=== PATIENT | female | born 1970 | race Caucasian/White ===

== ENCOUNTER → 2022-01-24 10:45 | Outpatient (CLI) | payer MEDICAID, SELFPAY ==
[2022-01-24 13:55] LABS: Amphetamine/Metha Screen,Urine Negative ng/ml (<1000); Barbiturates Screen,Urine Negative ng/ml (<200)
[2022-01-24 13:56] LABS: Benzodiazepines Screen,Urine Negative ng/ml (<200)
[2022-01-24 13:57] LABS: Cannabinoid Screen,Urine Negative ng/ml (<50); Cocaine Screen,Urine Negative ng/ml (<300)
[2022-01-24 13:58] LABS: Methadone Screen,Urine Negative ng/ml (<300); Opiate Screen,Urine Negative ng/ml (<300)
[2022-01-24 13:59] LABS: Phencyclidine Screen,Urine Negative ng/ml (<25)
== END ==
PROVIDERS: PCP Family Medicine; Visit Provider Family Medicine
DX: G62.9 Polyneuropathy, unspecified (principal); Z79.899 Other long term (current) drug therapy
CPT/HCPCS: 80305

== ENCOUNTER → 2022-03-28 11:15 | Outpatient (CLI) | payer MEDICARE, MEDICAID, SELFPAY ==
[2022-03-28 16:17] LABS: Phencyclidine Screen,Urine Negative ng/ml (<25)
[2022-03-28 16:24] LABS: Amphetamine/Metha Screen,Urine Negative ng/ml (<1000); Barbiturates Screen,Urine Negative ng/ml (<200)
[2022-03-28 16:25] LABS: Benzodiazepines Screen,Urine Negative ng/ml (<200)
[2022-03-28 16:26] LABS: Cannabinoid Screen,Urine Negative ng/ml (<50)
[2022-03-28 16:29] LABS: Cocaine Screen,Urine Negative ng/ml (<300); Methadone Screen,Urine Negative ng/ml (<300)
[2022-03-28 16:30] LABS: Opiate Screen,Urine Positive ng/ml (<300)
== END ==
LOC: LAB.DROPOF 15:50
PROVIDERS: PCP Family Medicine; Visit Provider Family Medicine
DX: Z79.899 Other long term (current) drug therapy (principal)
CPT/HCPCS: 80305

== ENCOUNTER → 2022-04-11 10:32 | Outpatient (CLI) | payer MEDICARE, MEDICAID, SELFPAY ==
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
[2022-04-11 12:09] LABS: Basophils # 0.1 K/mm3 (0-0.2); Basophils % 0.6 % (0.1-2.0); Eosinophils # 0.3 K/mm3 (0.0-0.4); Eosinophils % 2.5 % (0.1-12.0); Hemoglobin 13.1 g/dL (12.2-16.2); Lymphocytes # 2.3 K/mm3 (0.7-4.5); Lymphocytes % 23.6 % (10-50); Mean Corpuscular HGB Conc 31.2 g/dL (31.8-35.4); Mean Corpuscular Hemoglobin 26.7 pg (27.0-31.2); Mean Corpuscular Volume 85.6 fl (81-99); Mean Platelet Volume 8.2 fl (7.4-10.4); Monocytes # 0.6 K/mm3 (0.1-1.0); Monocytes % 5.6 % (1.7-9.3); Neutrophils # 6.7 K/mm3 (1.8-7.8); Neutrophils % 67.7 % (37.0-80.0); Platelet Count 292 K/mm3 (142-424); Red Blood Count 4.91 M/mm3 (4.20-5.40); Red Cell Distribution Width 14.6 % (11.5-17.5); White Blood Count 9.8 K/mm3 (4.8-10.8)
[2022-04-11 12:40] LABS: Chloride 100 mmol/L (98-107); Potassium 4.4 mmoL/L (3.5-5.1); Sodium 136 mmol/L (136-145)
[2022-04-11 12:43] LABS: Alanine Aminotransferase 14 U/L (12-78); Albumin Level 4.5 g/dl (3.5-5.0); Albumin/Globulin Ratio 1.5 (1.1-1.8); Alkaline Phosphatase 76 U/L (38-126); Anion Gap 13.4 mEq/L (5-15); Aspartate Amino Transferase 21 U/L (14-36); Bilirubin,Total 1.1 mg/dl (0.2-1.3); Blood Urea Nitrogen 17 mg/dl (7-17); Carbon Dioxide 27 mmol/L (22.0-30.0); Estimated Glomerular Filt Rate 65 ml/min (>60); GFR (African American) 79 ML/MIN (>60); Globulin 3.1 g/dL (1.3-3.2); Total Protein,Serum 7.6 g/dl (6.3-8.2)
[2022-04-11 12:44] LABS: Calcium 8.9 mg/dl (8.4-10.2); Glucose 114 mg/dl (74-100)
[2022-04-11 13:14] LABS: Thyroid Stimulating Hormone 2.01 uIU/mL (0.465-4.68)
[2022-04-12 11:44] LABS: Hemoglobin A1C 5.5 % (4.0-6.0)
[2022-04-16 05:12] LABS: Free Valproic Acid (Depakote) 10.5
== END ==
PROVIDERS: Psychiatry & Neurology Psychiatry; PCP Family Medicine; Visit Provider Family Medicine
DX: M54.2 Cervicalgia (principal); F39 Unspecified mood [affective] disorder; Z79.899 Other long term (current) drug therapy
CPT/HCPCS: 36415; 72050; 80053; 80165; 83036; 84443; 85025

== ENCOUNTER → 2022-07-18 15:00 | Outpatient (CLI) | payer MEDICARE, MEDICAID, SELFPAY ==
--- NOTE | 2022-07-18 15:00 | CT_ITS ---
FINAL REPORT CLINICAL HISTORY: lung cancer screening. smoker, 1/2 ppd x 45 years. copd, emphysema. mother had lung cancer FINDINGS: Axial images were obtained from the lung apex to the mid abdomen by computed tomography. Low-dose protocol was utilized. CTDl vol(mGy): 2.90 DLP (mGy-cm): 96.38 FINDINGS: There is no axillary adenopathy. There is no hilar or mediastinal adenopathy. The heart size is normal. There is no pericardial or pleural effusion. Limited images of the upper abdomen are unremarkable. Lung window images demonstrate no suspicious infiltrate or nodule. There are new minimal scattered calcified granulomas. Bilateral lower lobe scarring is seen. There is underlying emphysema. IMPRESSION: No evidence of primary lung neoplasm. Lung RADS category 1. Recommend 12 month follow-up low-dose chest CT. Reviewed, Interpreted and Dictated by Radha Durham MD Transcribed by Kari Santos Authenticated and [facility]
== END ==
PROVIDERS: PCP Family Medicine; Visit Provider Family Medicine
DX: Z87.891 Personal history of nicotine dependence (principal); Z12.2 Encounter for screening for malignant neoplasm of respiratory organs
CPT/HCPCS: 71271

== ENCOUNTER 2022-09-21 09:00 | Outpatient (RCR) | payer MEDICARE, MEDICAID, SELFPAY ==
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
--- NOTE | 2022-05-31 09:07 | HMH.RHREAS ---
Rehab Reassessment Rehab OP Re-assessment Start: 05/31/22 09:00 Freq: Status: Active Protocol: Document 05/31/22 09:02 KYLE (Rec: 05/31/22 09:07 KYLE [id number]) E-signed By Davon Kolb, PT Rehab Re-assessment Subjective Subjective Patient reports, I had moved to [place], but now I have moved back to [place] and I would like to continue with PT . She reports c/o 7 B UT pain upon arrival today. Objective Objective Notes Cervical AROM (in deg): FLEX= 0-40, EXT= 0-30, R SB= 0-20, L SB= 0-25, R ROT= 0-45, L ROT= 0-45. Pt presents with significant forward head and flexed positioning in sitting and standing this date. Assessment Progress Assessment Slower Than Expected Assessment Notes Pt has been absent from therapy for several weeks due to personal issues as stated above and little to no progress was able to be made toward goals in that time frame. Pt continues to have c/ o similar pain with activity in the cervical spine with less AROM this date than on initial eval noted. Skilled therapy services continue to be required to make progress toward all short term and terminal supervisor goals at this time. Patient goals met none Goals Not Met ST,2,3,4 LT,2,3,4,5 Revised Goals none Plan Plan Continue per initial POC. Frequency of Therapy 2 x/wk Duration of therapy 4 wks Time and Billing Re-Eval Time 16 Re-Eval Billing Units 1 PHYSICIAN CERTIFICATION: I certify the specified therapy services for Tiffany Finn are required, authorized, and reviewed every 30 days.
--- NOTE | 2022-07-05 11:24 | HMH.RHREAS ---
Rehab Reassessment Rehab OP Re-assessment Start: 05/31/22 09:00 Freq: Status: Active Protocol: Document 07/05/22 11:16 PHORJOSELUIS (Rec: 07/05/22 11:23 PHORNE [id number]) E-signed By Davon Kolb, PT Rehab Re-assessment Subjective Subjective Pt states, I missed all last week because I didn't call the bus and schedule it, but I though I did. Pt also reports she has not been performing her HEP as directed. Pain this date rated at 7.5/10. Objective Objective Notes Cervical AROM (in deg): FLEX= 0-35, EXT= 0-35, R SB= 0-40, L SB= 0-30, R ROT= 0-50, L ROT= 0-50. Pt presents with continued significant forward head and flexed positioning in sitting and standing this date. Assessment Progress Assessment Slower Than Expected Assessment Notes Pt has shown slight improvements in cervical ROM since last reassessment, but no improvements in pain consistently and continued poor posture in sitting and standing. She is somewhat non- adherent with home program, as well, and was counselled to be vigilant with her home program if she would like to see continued improvements in pain and ROM. Pt continues to need skilled intervention to reach prior functional level. Patient goals met none Goals Not Met ST,2,3,4 LT,2,3,4,5 Revised Goals none Plan Plan Continue per initial POC. If no or limited further progress noted in next 3-4 wks, pt will need referral to higher level of care. Frequency of Therapy 2 x/wk Duration of therapy 4 wks Time and Billing Re-Eval Time 15 Re-Eval Billing Units 1 PHYSICIAN CERTIFICATION: I certify the specified therapy services for Tiffany Finn are required, authorized, and reviewed every 30 days.
--- NOTE | 2022-08-17 11:32 | HMH.RHREAS ---
Rehab Reassessment Rehab OP Re-assessment Start: 05/31/22 09:00 Freq: Status: Active Protocol: Document 08/17/22 11:26 PHOVALENTÍN (Rec: 08/17/22 11:32 PHORNE [id number]) E-signed By Davon Kolb, PT Rehab Re-assessment Subjective Subjective Pt presents with c/o 4/10 pain this date. She reports, I just didn't make it last week because I missed the bus when they were supposed to come and get me. She has been present for 5 PT visits since her last reassessment date. Objective Objective Notes Cervical AROM (in deg): FLEX= 0-50, EXT= 0-35, R SB= 0-30, L SB= 0-30, R ROT= 0-50, L ROT= 0-50. B UE MMT: Grossly 5/5 throughout. Pt presents with continued significant forward head and flexed positioning in sitting and standing this date. Assessment Progress Assessment Slower Than Expected Assessment Notes Pt has shown some improvement in Cervical Flexion ROM since last reassessment, but otherwise cervical AROM remains unchanged. She continues to present with full strength throughout B UE. Pain is significantly better this date (7.5/10 during last reassessment). Pt self-reports that she has difficulty independently performing her HEP as much as directed when not at the clinic. She continues to need skilled intervention to return to prior level of function. Patient goals met ST,[address],2 LT,2,3,4,5 Revised Goals none Plan Plan Continue per initial POC. If no or limited further progress noted in next 3-4 wks, pt will need referral to higher level of care. Frequency of Therapy 2 x/wk Duration of therapy 4 wks Time and Billing Re-Eval Time 16 Re-Eval Billing
== END 2022-09-21 09:05 | disposition home or self-care (01) ==
LOC: PT 09:00
PROVIDERS: PCP Family Medicine; Visit Provider Family Medicine
DX: M50.30 Other cervical disc degeneration, unspecified cervical region (principal); R93.7 Abnormal findings on diagnostic imaging of other parts of musculoskeletal system
CPT/HCPCS: 97010; 97014; 97035; 97110; 97140; 97163; 97164; 97530; G0283

== ENCOUNTER → 2022-12-08 23:30 | Outpatient (CLI) | payer MEDICARE, MEDICAID, SELFPAY ==
[2022-12-08 19:45] LABS: Amphetamine/Metha Screen,Urine Negative ng/ml (<1000); Benzodiazepines Screen,Urine Negative ng/ml (<200)
[2022-12-08 19:46] LABS: Barbiturates Screen,Urine Negative ng/ml (<200)
[2022-12-08 19:47] LABS: Cannabinoid Screen,Urine Positive ng/ml (<50); Methadone Screen,Urine Negative ng/ml (<300)
[2022-12-08 19:48] LABS: Cocaine Screen,Urine Negative ng/ml (<300); Phencyclidine Screen,Urine Negative ng/ml (<25)
[2022-12-08 19:50] LABS: Opiate Screen,Urine Negative ng/ml (<300)
== END ==
PROVIDERS: PCP Nurse Practitioner Family; Visit Provider Nurse Practitioner Family
DX: Z79.899 Other long term (current) drug therapy (principal)
CPT/HCPCS: 80305

== ENCOUNTER → 2023-02-08 16:13 | Outpatient (CLI) | payer MEDICARE, MEDICAID, SELFPAY ==
[2023-02-08 13:01] LABS: Amphetamine/Metha Screen,Urine Negative ng/ml (<1000)
[2023-02-08 13:02] LABS: Barbiturates Screen,Urine Negative ng/ml (<200)
[2023-02-08 13:04] LABS: Benzodiazepines Screen,Urine Negative ng/ml (<200)
[2023-02-08 13:05] LABS: Cannabinoid Screen,Urine Positive ng/ml (<50); Cocaine Screen,Urine Negative ng/ml (<300)
[2023-02-08 13:06] LABS: Methadone Screen,Urine Negative ng/ml (<300)
[2023-02-08 13:07] LABS: Opiate Screen,Urine Negative ng/ml (<300); Phencyclidine Screen,Urine Negative ng/ml (<25)
== END ==
PROVIDERS: PCP Nurse Practitioner Family; Visit Provider Nurse Practitioner Family
DX: Z79.899 Other long term (current) drug therapy (principal); R39.9 Unspecified symptoms and signs involving the genitourinary system
CPT/HCPCS: 80305; 87086

== ENCOUNTER → 2023-02-16 09:22 | Outpatient (CLI) | payer MEDICARE, SELFPAY ==
[2023-02-16 21:32] LABS: Barbiturates Screen,Urine Negative ng/ml (<200)
[2023-02-16 21:34] LABS: Benzodiazepines Screen,Urine Negative ng/ml (<200)
[2023-02-16 21:35] LABS: Cannabinoid Screen,Urine Positive ng/ml (<50); Cocaine Screen,Urine Negative ng/ml (<300)
[2023-02-16 21:36] LABS: Methadone Screen,Urine Negative ng/ml (<300)
[2023-02-16 21:37] LABS: Opiate Screen,Urine Negative ng/ml (<300); Phencyclidine Screen,Urine Negative ng/ml (<25)
[2023-02-16 21:42] LABS: Amphetamine/Metha Screen,Urine Negative ng/ml (<1000)
[2023-02-23 08:19] LABS: Opiates Negative ng/mL (Cutoff=100)
== END ==
PROVIDERS: PCP Nurse Practitioner Family; Visit Provider Nurse Practitioner Family
DX: M54.2 Cervicalgia (principal); Z79.899 Other long term (current) drug therapy
CPT/HCPCS: 80305; 80361; G0480

== ENCOUNTER 2023-04-14 23:01 | Outpatient (CLI) | payer MEDICARE, SELFPAY ==
[2023-04-14 17:43] LABS: Coronavirus 19, PCR Not Detected (NotDetected); Influenza A, PCR Not Detected (NotDetected); Influenza B, PCR Not Detected (NotDetected)
[2023-04-14 17:50] LABS: Basophils % 0.4 % (0.1-2.0); Eosinophils # 0.1 K/mm3 (0.0-0.4); Eosinophils % 1.3 % (0.1-12.0); Hematocrit 34.3 % (37.0-47.0); Hemoglobin 11.6 g/dL (12.2-16.2); Lymphocytes # 1.6 K/mm3 (0.7-4.5); Lymphocytes % 19.5 % (10-50); Mean Corpuscular HGB Conc 33.8 g/dL (31.8-35.4); Mean Corpuscular Hemoglobin 28.9 pg (27.0-31.2); Mean Corpuscular Volume 85.7 fl (81-99); Mean Platelet Volume 9.5 fl (7.4-10.4); Monocytes # 0.5 K/mm3 (0.1-1.0); Monocytes % 5.7 % (1.7-9.3); Platelet Count 333 K/mm3 (142-424); Red Blood Count 4.01 M/mm3 (4.20-5.40); Red Cell Distribution Width 14.1 % (11.5-17.5); White Blood Count 8.3 K/mm3 (4.8-10.8)
[2023-04-14 17:52] LABS: Alanine Aminotransferase 13 U/L (12-78); Albumin Level 3.8 g/dl (3.5-5.0); Albumin/Globulin Ratio 1.5 (1.1-1.8); Alkaline Phosphatase 67 U/L (38-126); Aspartate Amino Transferase 18 U/L (14-36); Bilirubin,Total 0.6 mg/dl (0.2-1.3); Blood Urea Nitrogen 9 mg/dl (7-17); Calcium 8.6 mg/dl (8.4-10.2); Carbon Dioxide 28 mmol/L (22.0-30.0); Chloride 97 mmol/L (98-107); Cholesterol 190 mg/dl (140-200); Estimated Glomerular Filt Rate 87 ml/min (>60); GFR (African American) 105 ML/MIN (>60); Globulin 2.6 g/dL (1.3-3.2); Glucose 112 mg/dl (74-100); HDL Cholesterol 63 mg/dl (40-60); Sodium 132 mmol/L (136-145); Total Protein,Serum 6.4 g/dl (6.3-8.2); Triglycerides 124 mg/dl (30-150); VLDL Cholesterol 25 mg/dL (0-40)
[2023-04-14 18:03] LABS: Direct LDL Cholesterol 83.91 mg/dL (100-129)
[2023-04-14 18:18] LABS: 25-OH Vitamin D, Total < 12.8 ng/mL (30-100)
[2023-04-14 18:23] LABS: Thyroid Stimulating Hormone 1.24 uIU/mL (0.465-4.68)
== END 2023-04-14 23:59 ==
PROVIDERS: PCP Family Medicine; Visit Provider Family Medicine
DX: R10.2 Pelvic and perineal pain; E55.9 Vitamin D deficiency, unspecified; J44.9 Chronic obstructive pulmonary disease, unspecified; E78.5 Hyperlipidemia, unspecified; E03.9 Hypothyroidism, unspecified; J11.1 Influenza due to unidentified influenza virus with other respiratory manifestations; R05.9 Cough, unspecified
CPT/HCPCS: 80053; 80061; 82306; 84443; 85025; 87636

== ENCOUNTER 2023-07-19 11:00 | Outpatient (RCR) | payer MEDICARE, SELFPAY ==
--- NOTE | 2023-07-04 11:13 | HMH.PTOPEV ---
PT Outpatient Evaluation Rehab PT Outpatient Evaluation Start: 07/04/23 09:52 Freq: Status: Active Protocol: Document 07/04/23 09:52 MARINE (Rec: 07/04/23 11:13 MARINE [id number]) E-signed By Latoya Shepherd, PT Outpatient Therapy Subjective History Subjective History Pt is a 53 y/o female who reports chronic neck pain with gradual worsening over the past 6 months. Pt denies recent imaging of her neck. Pt reports neck pain refers into the top of her shoulders and she experiences dull headaches 1x/week that radiate to her occiput. Pt denies numbness/ tingling or distal UE symptoms . Pt reports pain is aggravated by doing housework, prolonged looking up/down, lifting/reaching, and looking over her shoulders. Pt reports sometimes she feels like she can't hold her neck up due to weakness/fatigue. Medical History: Stress incontinence, Urinary frequency, Presence of mandibular implant, Cervical myelopathy, Dysconjugate gaze, Neuropathy, Incisional hernia , Bipolar affect, depressed, Schizophrenia, PTSD (post- traumatic stress disorder) Observation: forward head posture with increased thoracic kyphosis New diagnosis of cancer in past 12 No months? Chief Complaint Pain,Stiff Symptom Type Ache,Dull Symptoms Relieved By Rest/Positioning Symptoms Aggravated By Lifting Current Functional Limitations Reaching,Lifting,Housework, Desk Work/Reading Symptom Description Intermittent Level of pain today (0-10) 8 Pain scale - at its best (0-10) 3 Pain scale - at its worst (0-10) 9 Cervical Eval Palpation Cervical Muscles R Suboccipital,L Suboccipital, R Upper Trapezius,L Upper Trapezius Cervical/Thoracic Palpation Findings Tenderness Flexibility Deficits Upper Trapezius Muscle Length (R) Moderate Tightness,(L) Moderate Tightness Levaetor Scapulae Muscle Length (R) Moderate Tightness,(L) Moderate Tightness Sternocleidomastoid Muscle Length (R) Moderate Tightness,(L) Moderate Tightness Passive Joint Mobility Cervical PIVM Dec: R C4/5 L C4/5 R C5/6 L C5/6 R C6/7 L C6/7 R C7/T1 L C7/T1 AROM Cervical Spine Extension Active Range of 30 Motion (degrees) Cervical Spine Flexion Active Range of 25 Motion (degrees) Cervical Spine Right Lateral Flexion 30 Active Range of Motion (degrees) Cervical Spine Left Lateral Flexion 30 Active Range of Motion (degrees) Cervical Spine Right Rotation Active 20 Range of Motion (degrees) Cervical Spine Left Rotation Active 35 Range of Motion (degrees) MMT Bilateral Deltoid (C5) 4 Good Biceps Brachii Strength Grade 4 Good Wrist Extension Strength Grade 5 Normal Triceps Brachii Strength Grade 5 Normal Wrist Flexion Strength Grade 5 Normal Extensor Pollicis Longus Strength Grade 5 Normal Finger Abduction Strength Grade 5 Normal Altered Sensation Comment equal and intact to light touch sensation bilaterally Shoulder/Elbow Eval Shoulder Objective Measurements Shoulder MMT Bilateral Lower Trapezius Strength Grade 4- Good- Middle Trapezius Strength Grade 4- Good- Rhomboids Strength Grade 4- Good- Serratus Anterior Strength Grade 4 Good Upper Trapezius/Levator Scapulae 4 Good Elbow Objective Measurements Neck Disability Index Neck Disability Index Section 1: Pain Intensity The pain is moderate at the moment Section 2: Personal Care (washing, It is painful to look after dressing, etc.) myself and I am slow and careful Section 3: Lifting Pain prevents me lifting heavy weights off the floor, but I can manage Section 4: Reading I can't read as much as I want because of moderate pain in my neck Section 5: Headaches I have slight headaches, which come infrequently Section 6: Concentration I can concentrate fully when I want to with slight difficulty Section 7: Work I can do most of my usual work , but no more Section 8: Driving I can hardly drive at all because of severe pain in my neck Section 9: Sleeping I have no trouble sleeping Section 10: Recreation I can hardly do any recreation activities because of pain in my neck NDI Score 21 Outpatient Therapy Assessment Impairments Problems/Impairmments Palpation Tenderness,Impaired Range of Motion,Impaired Strength,Impaired Lifting, Impaired Household Care, Impaired Recreational Activities,Impaired Desk/ Computer Activities,Subjective C/O Pain,Impaired Self Care/ Self Management Prognosis Rehab Potential Good Comment Barriers to progress include chronic pain and reliance on others for transportation Clinical Impression Consistent with Diagnosis Yes Short Term Goals Number of Weeks 3 Increase Range of Motion Yes: Improve cervical AROM by 5 degrees ea plane Decrease Subjective C/O Pain Yes: Improve pain at worst to 7/10 to improve overall QOL Improve Self Care/Self Management Yes Patient to be Ind w/ HEP Yes Detention Goals Number of Weeks 6 Increase Range of Motion Yes: Improve cervical AROM flex/ext to 40, LF to 45, rot to 50-60 Increase Strength Yes: Improve scap strength to 4-4+/5 grossly to assist with posture/function Improve Neck Disability Index Score Yes: Improve score to 16 to improve overall QOL Decrease Subjective C/O Pain Yes: Improve pain at worst to 5/10 to improve overall QOL Patient to be Ind w/ Advanced HEP Yes Outpatient Therapy Plan of Care Treatment Plan May Include Therapeutic Exercise Including Home Yes Exercise Program Manual Therapy Techniques Yes Neuromuscular Re-education Yes Therapeutic Activities to Return to Yes Previous Functional/Work Level ADL/Self Care Education Yes Mechanical Traction Yes Dry Needling Yes Thermal Modalities Yes Electrical Stimulation Yes Ultrasound/Phonophoresis Yes Iontophoresis Yes Massage Yes Eval/Re-Eval Yes Frequency Times per week 2 Duration Number of Weeks 4-6 Addendums This patient is a candidate for social No or vocational rehab? Patient/Guardian verbally acknowledges Yes understanding of treatment program and consents to further treatment? Patient/Guardian verbally acknowledges Yes understanding of diagnosis, prognosis and goals for treatment? Eval Complexity PT Charges 30652 - Low Complexity PHYSICIAN CERTIFICATION: I certify the specified therapy services for Tiffany Finn are required, authorized, and reviewed every 30 days.
== END 2023-07-19 12:00 | disposition home or self-care (01) ==
LOC: PT 11:00
PROVIDERS: Visit Provider Family Medicine
DX: M54.2 Cervicalgia (principal)
CPT/HCPCS: 97010; 97014; 97110; 97163; G0283

== ENCOUNTER 2023-10-11 08:04 | Outpatient (CLI) | payer MEDICARE, MEDICAID, SELFPAY ==
--- NOTE | 2023-10-11 08:04 | MM_ITS ---
PROCEDURE INFORMATION: Exam: Bilateral Screening 3D Mammography Exam date and time: 10/11/2023 8:04 AM Age: 53 years old Clinical indication: Screening examination TECHNIQUE: Imaging protocol: Bilateral Screening tomosynthesis and 2D mammography including computer-aided detection (CAD) when performed. COMPARISON: [facility] DIGITAL MAMM-SCREEN BILATERAL 12/29/2010 4:04 PM FINDINGS: MAMMOGRAPHY: Breast composition: The breasts are heterogeneously dense, which may obscure small masses. Mass: None. Architectural distortion: None. Calcifications: No suspicious calcifications. Asymmetric density: None. Skin thickening: None. Axillary adenopathy: None. IMPRESSION: No mammographic evidence of malignancy. Annual screening is recommended unless otherwise clinically indicated. ASSESSMENT: BI-RADS Category 1: Negative
== END 2023-10-11 23:59 | disposition home or self-care (01) ==
LOC: RAD 08:04
PROVIDERS: PCP Family Medicine; Visit Provider Family Medicine
DX: Z12.31 Encounter for screening mammogram for malignant neoplasm of breast (principal)
CPT/HCPCS: 77063; 77067

== ENCOUNTER 2023-10-19 10:37 | Outpatient (CLI) | payer MEDICARE, MEDICAID, SELFPAY ==
[2023-10-19 11:33] LABS: Basophils % 0.5 % (0.1-2.0); Eosinophils # 0.1 K/mm3 (0.0-0.4); Eosinophils % 2.2 % (0.1-12.0); Hemoglobin 12.7 g/dL (12.2-16.2); Lymphocytes # 1.8 K/mm3 (0.7-4.5); Lymphocytes % 30.5 % (10-50); Mean Corpuscular HGB Conc 32.6 g/dL (31.8-35.4); Mean Corpuscular Hemoglobin 28.2 pg (27.0-31.2); Mean Corpuscular Volume 86.4 fl (81-99); Mean Platelet Volume 8.4 fl (7.4-10.4); Monocytes # 0.4 K/mm3 (0.1-1.0); Monocytes % 6.3 % (1.7-9.3); Neutrophils # 3.5 K/mm3 (1.8-7.8); Neutrophils % 60.6 % (37.0-80.0); Platelet Count 275 K/mm3 (142-424); Red Blood Count 4.51 M/mm3 (4.20-5.40); Red Cell Distribution Width 14.5 % (11.5-17.5); White Blood Count 5.8 K/mm3 (4.8-10.8)
[2023-10-19 11:43] LABS: Albumin Level 4.2 g/dl (3.5-5.0); Chloride 103 mmol/L (98-107); Potassium 4.3 mmoL/L (3.5-5.1); Sodium 134 mmol/L (136-145)
[2023-10-19 11:46] LABS: Alanine Aminotransferase 8 U/L (12-78); Albumin/Globulin Ratio 1.6 (1.1-1.8); Alkaline Phosphatase 56 U/L (38-126); Anion Gap 9.3 mEq/L (5-15); Aspartate Amino Transferase 14 U/L (14-36); Blood Urea Nitrogen 10 mg/dl (7-17); Calcium 8.8 mg/dl (8.4-10.2); Carbon Dioxide 26 mmol/L (22.0-30.0); Estimated Glomerular Filt Rate 74 ml/min (>60); GFR (African American) 90 ML/MIN (>60); Globulin 2.7 g/dL (1.3-3.2); Glucose 102 mg/dl (74-100); Total Protein,Serum 6.9 g/dl (6.3-8.2)
[2023-10-19 11:53] LABS: C-Reactive Protein 0.7 mg/L (0-4)
[2023-10-19 12:01] LABS: Erythrocyte Sedimentation Rate 11 mm/hr (0-30)
[2023-10-20 17:43] LABS: Anti-Centromere B Antibodies <0.2 AI (0.0-0.9); Anti-Cyclic Citrullinated Pept 5 units (0-19); Anti-DNA (DS) Ab Qn 1 IU/mL (0-9); Anti-Jo-1 <0.2 AI (0.0-0.9); Anti-Smith Antibody <0.2 AI (0.0-0.9); Antichromatin Antibodies <0.2 AI (0.0-0.9); Antiscleroderma-70 Antibodies <0.2 AI (0.0-0.9); RA Latex Turbid. 14.6 IU/mL (<14.0); RNP Antibodies 0.2 AI (0.0-0.9); Sjogren's Anti-SS-A <0.2 AI (0.0-0.9); Sjogren's Anti-SS-B <0.2 AI (0.0-0.9)
[2023-10-21 22:35] LABS: Lupus Reflex Interpretation Comment: (.); PTT-LA 39.1 sec (0.0-43.5); dRVVT 35.3 sec (0.0-47.0)
== END 2023-10-19 23:59 | disposition home or self-care (01) ==
LOC: LAB 10:39
PROVIDERS: PCP Family Medicine; Visit Provider Family Medicine
DX: R60.9 Edema, unspecified (principal); R14.0 Abdominal distension (gaseous)
CPT/HCPCS: 36415; 80053; 85025; 85613; 85651; 86140; 86200; 86225; 86235; 86431

== ENCOUNTER 2024-04-08 13:58 | Outpatient (CLI) | payer MEDICARE, MEDICAID, SELFPAY ==
[2024-04-08 18:26] LABS: Basophils % 0.4 % (0.1-2.0); Eosinophils # 0.1 K/mm3 (0.0-0.4); Eosinophils % 1.3 % (0.1-12.0); Hematocrit 35.3 % (37.0-47.0); Hemoglobin 11.4 g/dL (12.2-16.2); Lymphocytes # 2.1 K/mm3 (0.7-4.5); Lymphocytes % 25.2 % (10-50); Mean Corpuscular HGB Conc 32.3 g/dL (31.8-35.4); Mean Corpuscular Hemoglobin 26.8 pg (27.0-31.2); Mean Corpuscular Volume 82.9 fl (81-99); Mean Platelet Volume 10.6 fl (7.4-10.4); Monocytes # 0.4 K/mm3 (0.1-1.0); Monocytes % 5.2 % (1.7-9.3); Neutrophils # 5.7 K/mm3 (1.8-7.8); Neutrophils % 67.8 % (37.0-80.0); Platelet Count 354 K/mm3 (142-424); Red Blood Count 4.26 M/mm3 (4.20-5.40); Red Cell Distribution Width 13.5 % (11.5-17.5); White Blood Count 8.5 K/mm3 (4.8-10.8)
[2024-04-08 19:11] LABS: Albumin Level 4.5 g/dl (3.5-5.0); Chloride 96 mmol/L (98-107); Potassium 4.4 mmoL/L (3.5-5.1); Sodium 133 mmol/L (136-145)
[2024-04-08 19:14] LABS: Alanine Aminotransferase 16 U/L (12-78); Albumin/Globulin Ratio 1.7 (1.1-1.8); Alkaline Phosphatase 72 U/L (38-126); Anion Gap 12.4 mEq/L (5-15); Aspartate Amino Transferase 20 U/L (14-36); Bilirubin,Total 0.8 mg/dl (0.2-1.3); Blood Urea Nitrogen 10 mg/dl (7-17); Calcium 8.9 mg/dl (8.4-10.2); Carbon Dioxide 29 mmol/L (22.0-30.0); Chol/HDL Ratio 2.1 (1-3.5); Cholesterol 189 mg/dl (140-200); Estimated Glomerular Filt Rate 74 ml/min (>60); GFR (African American) 90 ML/MIN (>60); Globulin 2.6 g/dL (1.3-3.2); Glucose 95 mg/dl (74-100); HDL Cholesterol 92 mg/dl (40-60); Total Protein,Serum 7.1 g/dl (6.3-8.2); Triglycerides 91 mg/dl (30-150); VLDL Cholesterol 18 mg/dL (0-40)
[2024-04-08 19:28] LABS: Direct LDL Cholesterol 80.99 mg/dL (100-129)
[2024-04-08 19:35] LABS: 25-OH Vitamin D, Total 18.6 ng/mL (30-100)
[2024-04-08 19:45] LABS: Thyroid Stimulating Hormone 1.72 uIU/mL (0.465-4.68)
[2024-04-08 20:03] LABS: HIV Combo NEGATIVE (Negative)
[2024-04-08 20:05] LABS: Vitamin B12 449 pg/mL (239-931)
[2024-04-08 20:11] LABS: Hepatitis C Ab Qual. W/ RFX NEGATIVE (Negative)
[2024-04-08 21:23] LABS: Hemoglobin A1C 5.8 % (4.0-6.0)
== END 2024-04-08 23:59 | disposition home or self-care (01) ==
LOC: LAB.DROPOF 04-09 11:02
PROVIDERS: PCP Family Medicine; Visit Provider Family Medicine
DX: M54.9 Dorsalgia, unspecified (principal); G62.9 Polyneuropathy, unspecified; R91.1 Solitary pulmonary nodule; K59.09 Other constipation; F17.210 Nicotine dependence, cigarettes, uncomplicated; J44.9 Chronic obstructive pulmonary disease, unspecified; M47.812 Spondylosis without myelopathy or radiculopathy, cervical region; R35.0 Frequency of micturition; F20.9 Schizophrenia, unspecified; Z11.4 Encounter for screening for human immunodeficiency virus [HIV]; Z11.59 Encounter for screening for other viral diseases; Z82.69 Family history of other diseases of the musculoskeletal system and connective tissue; Z12.11 Encounter for screening for malignant neoplasm of colon; Z13.1 Encounter for screening for diabetes mellitus; Z13.6 Encounter for screening for cardiovascular disorders; Z79.899 Other long term (current) drug therapy; R20.8 Other disturbances of skin sensation; E55.9 Vitamin D deficiency, unspecified; M19.079 Primary osteoarthritis, unspecified ankle and foot; R94.130 Abnormal response to nerve stimulation, unspecified; R79.9 Abnormal finding of blood chemistry, unspecified; Z13.220 Encounter for screening for lipoid disorders
CPT/HCPCS: 80053; 80061; 82306; 82607; 83036; 84443; 85025; 86803; 87389

== ENCOUNTER 2024-04-25 10:51 | Outpatient (CLI) | payer MEDICARE, MEDICAID, SELFPAY ==
--- NOTE | 2024-04-25 10:52 | CT_ITS ---
FINAL REPORT CLINICAL HISTORY: lung cancer screening current smoker for 30 years, 5-6 cigs per day COMPARISON: 07/18/2022 FINDINGS: CTDI vol (mGy): 2.90 DLP: 100.[address] images of the chest were obtained using the low-dose protocol for screening. There is no evidence of mediastinal or hilar mass or adenopathy. No axillary mass or adenopathy is identified. On the lung window images, no pulmonary mass or suspicious nodule is identified. There are numerous small calcified granulomas. Moderate emphysematous changes are seen. IMPRESSION: Lung RADS category 1 . Recommend 12 month followup low-dose CT for further evaluation. Reviewed, Interpreted and Dictated by Radha Durham MD Transcribed by Chantelle Graves Authenticated and [facility]
--- NOTE | 2024-04-25 11:01 | XR_ITS ---
FINAL REPORT CLINICAL HISTORY: back pain PAIN RADIATING DOWN L LEG, NUMBNESS IN FEET COMPARISON: None FINDINGS: LUMBAR SPINE: AP and lateral views of the lumbar spine were obtained. There is no prior exam for comparison. There is no acute fracture or malalignment. Vertebral body height is preserved. Mild degenerative disc disease is present at the L5-S1 level, as well as lower lumbar facet arthropathy. No acute paraspinal abnormality. IMPRESSION: Mild degenerative disc disease at the L5-S1 level without acute bony abnormality. Reviewed, Interpreted and Dictated by Radha Durham MD Transcribed by Charissa Gandhi Authenticated and [facility]
--- NOTE | 2024-04-25 11:01 | XR_ITS ---
FINAL REPORT CLINICAL HISTORY: back pain PAIN RADIATING DOWN L LEG, NUMBNESS IN FEET COMPARISON: None FINDINGS: THORACIC SPINE: AP, lateral, and swimmer's views of the thoracic spine were obtained. There is no prior exam for comparison. There is no acute fracture or malalignment. Vertebral body height is preserved. There is mild degenerative disc disease in the lower thoracic spine. Paraspinal soft tissues are within normal limits. IMPRESSION: Mild degenerative disc disease without acute bony abnormality. Reviewed, Interpreted and Dictated by Radha Durham MD Transcribed by Charissa Gandhi Authenticated and [facility]
== END 2024-04-25 23:59 | disposition home or self-care (01) ==
LOC: RAD 10:52
PROVIDERS: PCP Family Medicine; Visit Provider Family Medicine
DX: R91.1 Solitary pulmonary nodule (principal); M54.9 Dorsalgia, unspecified; G62.9 Polyneuropathy, unspecified; Z87.891 Personal history of nicotine dependence
CPT/HCPCS: 71271; 72072; 72100

== ENCOUNTER 2024-07-01 09:09 | Outpatient (CLI) | payer MEDICARE, MEDICAID, SELFPAY ==
--- NOTE | 2024-07-01 09:30 | MR_ITS ---
FINAL REPORT TECHNIQUE: Multiplanar and multisequence MR imaging was performed through the lumbar spine before and after contrast administration. CLINICAL HISTORY: nerve damage. low back pain. sciatica FINDINGS: The vertebral bodies are normally aligned in the sagittal plane. There is likely mild scoliosis. The vertebral body heights are preserved. There is no bone marrow edema. There is no abnormal bone marrow enhancement. The cord terminates at L1. There is normal signal within the distal cord. There is no abnormal enhancement in the distal cord. There is no acute paraspinal abnormality. There is no loculated fluid collection. L1-L2: Unremarkable. L2-L3: There is an annular disc bulge. There is no central canal stenosis or neuroforaminal narrowing. L3-L4: There is bilateral facet osteoarthropathy. There is no disc herniation or central canal stenosis. There is mild left but no right neuroforaminal narrowing. L4-L5: There is an annular disc bulge, degenerative endplate changes and facet osteoarthropathy. There is no central canal stenosis. There is moderate bilateral neuroforaminal narrowing. L5-S1: There is a left paracentral protrusion superimposed on an annular disc bulge, degenerative endplate changes and facet osteoarthropathy. Disc material likely contacts the left S1 nerve root. There is mild to moderate central canal stenosis with mild right and moderate to severe left neuroforaminal narrowing. IMPRESSION: Left paracentral protrusion at L5-S1 likely contacts the left S1 nerve root. Degenerative disc disease at other levels as detailed above. No abnormal contrast enhancement. Reviewed, Interpreted and Dictated by Eva Jama MD Transcribed by Kari Santos Authenticated and . [facility]
[2024-07-01] MEDS: SODIUM CHLORIDE 0.9% 10ML SYR (RAD ONLY) 10 ML IV (10:06)
[2024-07-01] MEDS: GADOTERIDOL INJ 20ML SYRINGE 17 ML IV (10:06)
== END 2024-07-01 23:59 | disposition home or self-care (01) ==
LOC: RAD 09:09
PROVIDERS: PCP Family Medicine; Visit Provider Family Medicine
DX: M54.50 Low back pain, unspecified (principal)
CPT/HCPCS: 72158; A9576

== ENCOUNTER 2024-07-05 08:52 | Outpatient (CLI) | payer MEDICARE, MEDICAID, SELFPAY ==
--- NOTE | 2024-07-05 09:30 | MR_ITS ---
FINAL REPORT CLINICAL HISTORY: nerve damage mid back pain no injury FINDINGS: Multiplanar MR imaging of the thoracic spine was performed without and with contrast. On the sagittal T2-weighted images, there is abnormal decreased signal throughout the thoracic disks. The vertebrae are of normal height. There is no malalignment. The thoracic cord demonstrates normal signal and configuration. There is no evidence of significant canal stenosis. There is a small Schmorl's node in the superior endplate of the T11 vertebra. There is moderate endplate reactive signal, anteriorly, at the T11-12 disc space. This is well-seen on image 8 of series 6. On the axial images, there is no significant disc bulge or protrusion. There is no marrow edema. On the postcontrast images, no abnormal contrast enhancement is identified. There is mild enhancement associated with endplate reactive signal changes at T11-T12 probably due to granulomatous change. IMPRESSION: No acute osseous abnormality. Endplate reactive signal changes at T11-12 probably due to granulomatous change. Reviewed, Interpreted and Dictated by Thony Larose MD Transcribed by Kari Santos Authenticated and [facility]
--- NOTE | 2024-07-05 10:30 | MR_ITS ---
FINAL REPORT CLINICAL HISTORY: pain hard time holding head up FINDINGS: Multi planar MR imaging was obtained of the cervical spine with and without contrast. There is abnormal decreased signal throughout the cervical discs. The vertebrae are of normal height. There is mild reversal of the cervical lordosis, centered at the C5-6 level. The cervical cord demonstrates normal signal and configuration. C2-C3: There is no evidence of significant disc bulge or protrusion. There is no significant facet hypertrophy. C3-C4: There is endplate hypertrophy eccentric to the right, with asymmetric right facet hypertrophy and severe right neural foraminal narrowing. C4-C5: There is mild endplate hypertrophy with mild to moderate bilateral neural foraminal narrowing. C5-C6: There is a moderate left paracentral disc protrusion, which significantly compromises the left side of the canal, best seen on image #38 of series 6. There is severe left and moderate right neural foraminal narrowing. C6-C7: A moderate annular bulge is present, with moderate bilateral neural foraminal narrowing. C7-T1: There is no evidence of significant disc bulge or protrusion. There is no significant facet hypertrophy. There is no abnormal contrast enhancement. IMPRESSION: Multilevel cervical degenerative change, most severe on the right at the C3-4 level, and on the left at the C5-6 level. Reviewed, Interpreted and Dictated by Thony Larose MD Transcribed by Charissa Gandhi Authenticated and [facility]
[2024-07-05] MEDS: SODIUM CHLORIDE 0.9% 10ML SYR (RAD ONLY) 10 ML IV (10:45)
[2024-07-05] MEDS: GADOTERIDOL INJ 20ML SYRINGE 17 ML IV (10:45)
== END 2024-07-05 23:59 | disposition home or self-care (01) ==
LOC: RAD 08:52
PROVIDERS: PCP Family Medicine; Visit Provider Family Medicine
DX: M54.2 Cervicalgia (principal); G62.9 Polyneuropathy, unspecified; G95.9 Disease of spinal cord, unspecified; M54.9 Dorsalgia, unspecified; M54.30 Sciatica, unspecified side; R20.8 Other disturbances of skin sensation; R94.130 Abnormal response to nerve stimulation, unspecified
CPT/HCPCS: 72156; 72157; A9576

== ENCOUNTER 2024-07-09 09:16 | Outpatient (CLI) | payer MEDICARE, MEDICAID, SELFPAY ==
--- NOTE | 2024-07-09 09:30 | MR_ITS ---
FINAL REPORT TECHNIQUE: Multiplanar MR imaging of the pelvis was obtained with and without contrast. CLINICAL HISTORY: Nerve impingement. left sided low back and leg pain FINDINGS: There is abnormal decreased signal at the L5-S1 disc with significant endplate reactive signal changes eccentric to the left. There is a moderate left posterolateral disc protrusion and moderate left lateral recess stenosis. There is moderate to high-grade left neuroforaminal narrowing. There is asymmetric left facet hypertrophy. Postcontrast imaging demonstrates no abnormal enhancement. Sacrum and coccyx are otherwise unremarkable. SI joints are intact. IMPRESSION: Hypertrophic changes at L5-S1 on the left with compromise of the left lateral recess stenosis and moderate to high-grade left neuroforaminal narrowing. Reviewed, Interpreted and Dictated by Thony Larose MD Transcribed by Chantelle Graves Authenticated and [facility]
[2024-07-09] MEDS: SODIUM CHLORIDE 0.9% 10ML SYR (RAD ONLY) 10 ML IV (10:32)
[2024-07-09] MEDS: GADOTERIDOL INJ 20ML SYRINGE 16 ML IV (10:32)
== END 2024-07-09 23:59 | disposition home or self-care (01) ==
LOC: RAD 09:16
PROVIDERS: PCP Family Medicine; Visit Provider Family Medicine
DX: G54.9 Nerve root and plexus disorder, unspecified (principal); M54.50 Low back pain, unspecified; M79.604 Pain in right leg
CPT/HCPCS: 72197; A9576

== ENCOUNTER 2024-08-26 13:28 | Outpatient (CLI) | payer MEDICARE, MEDICAID, SELFPAY ==
--- OUTSIDE RECORDS SUMMARY | 2024-07-23 09:00 | XMS_ITS | Encounter Summary ---
Author Organization Healthcare Address [address] [place] [address] Care Team Providers Care Therapeutic Mentor Name Role Phone Melanie Tolliver APRN Primary Care Provider [phone] Reason for Referral * Other Medical (Routine) - Closed Specialty Diagnoses / Procedures Referred By Contac t Referred To Contact Pain Medicine Diagnoses Spondylosis of lumbar region without myelopathy or radiculopathy Procedures Interlaminer Epidural - Lumbar / Sacral Osmani Carter MD [address] [facility] [address] [place] [address] Phone: tel: fax: [facility] Interventional Pain Medicine [address] [place] [phone] Phone: tel: fax: Referral ID Status Reason Start Date Expiration Date Visits Re quested Visits Authorized [id number] Closed 07/23/2024 01/22/2026 1 1 Reason for Visit * Reason Comments Neck Pain New Patient Neck back an feet pa in * Consultation (Routine) - Closed Specialty Diagnoses / Procedures Referred By Contac t Referred To Contact Pain Medicine Diagnoses Spondylosis without myelopathy or radiculopathy, cervical region Melanie Tolliver APRN [address] [place] [address] Phone: tel: fax: [facility] Interventional Pain Medicine [address] [place] [address] Phone: tel: fax: Referral ID Status Reason Start Date Expiration Date V isits Requested Visits Authorized [id number] Closed Specialty Services Required 07/02/2024 01/01/2026 1 1 Encounter Details Date Type Department Care Team (Late st Contact Info) Description 07/23/2024 9:00 AM EDT Office Visit [facility] Interventional Pain Medicine [address] [place] [address] Osmani Carter MD [address] [facility] [address] [place] [address] Spondylosis of lumbar region without myelopathy or radiculopathy (Primary Dx); Spondylosis without myelopathy or radiculopathy, cervical region; Spondylosis of cervical region without myelopathy or radiculopathy Social History Tobacco Use Types Packs/Day Years Used Date Smoking Tobacco: Former Cigarettes Smokeless Tobacco: Never Tobacco Cessation:Counseling Given: Not Answered Comments Unknown Sex and Gender Information Value Date Recorded Sex Assigned at Not on file Legal Sex Female 7:34 PM EDT Gender Identity Not on file Sexual Orientation Not on file documented as of this encounter Last Filed Vital Signs Vital Sign Reading Time Taken Comments Blood Pressure 93/63 07/23/2024 9:12 AM EDT Pulse 85 07/23/2024 9:12 AM EDT Temperature 36.4 C (97.5 F) 07/23/2024 9:12 AM EDT Respiratory Rate 18 07/23/2024 9:12 AM EDT Oxygen Saturation 95% 07/23/2024 9:12 AM EDT Inhaled Oxygen Concentration - - Weight 88.5 kg (195 lb) 07/23/2024 9:12 AM EDT Height 172.7 cm (5' 8 ) 07/23/2024 9:12 AM EDT Body Mass Index 29.65 07/23/2024 9:12 AM EDT documented in this encounter Miscellaneous Notes * Progress Notes - Dalia Duron, - 07/23/2024 9:00 AM EDT Images from the original note were not included. Interventional Pain Medicine New Patient Note Subjective: Referring Physician: UnrulyMelanie rice APRN [address] [place] [address] Record Review: I personally reviewed [facility] Records records Chief Complaint: neck pain and back pain History of Present Illness: Tiffany Finn is a 54 y.o. female with PMHx of Bipolar Disorder, GERD . Patient referred by Melanie Tolliver APRN for evaluation of neck pain. Presents with: Site: neck pain Onset: years, worsening Severity: 08/20 Descriptors: dull, aching, pop Aggravating Factors: axial flexion and extension, rotation Relieving Factors: unable to identify Associated Symptoms: denies recent fall Site: back pain Onset: years, worsening Severity: 08/20 Descriptors: sharp, burning, numbness Aggravating Factors: prolonged walking, standing, twisting Relieving Factors: rest Associated Symptoms: numbness down posterior LLE to level of foot, denies saddle anesthesia, reports hx of overactive bladder NDI: 30 Current Disabilities: limitations in ADLs/IADLs Functional Goals of Treatment: improvement in function Current Medication: Current Pain Medications DULoxetine (Cymbalta) [address] capsule Take 1 capsule (60 mg total) by mouth 2 (two) times a day. Do not crush or chew. QUEtiapine (SEROquel) 100 MG tablet Take 1 tablet (100 mg total) by mouth 2 (two) times a day. traZODone (Desyrel) 100 MG tablet Take 2 tablets (200 mg total) by mouth every night. Lyrica 150 Daily Tylenol Previous Medication: Ibuprofen Gabapentin - no relief Previous Conservative Treatment: heat ice medication trials modified activities rest unable to complete HEP due to increased pain unable to complete physical therapy due to increased pain Previous Interventions/Consults: Denies Other Medical History Work Status/Pain related to work injury: No reports that she has been smoking cigarettes. She has never used smokeless tobacco. Anticoagulation: No Review of Systems: CONSTITUTIONAL: denies fevers, chills HEENT: denies swallowing difficulties, sore throat CARDIOVASCULAR: denies chest pain, palpitations, syncope RESPIRATORY: denies shortness of breath, cough, wheezing GI: denies change in bowel habits, nausea, vomiting : denies change in bladder function, frequency, dysuria SKIN: denies rash, skin changes MSK: Per HPI NEURO: Per HPI PSYCH: Per HPI General Physical Exam: Constitutional Appears well-developed and well-nourished Head Normocephalic and atraumatic Neck Neck supple Cardiovascular Minimal to no peripheral edema Pulmonary/Chest Effort normal, no shortness of breath noted Skin Skin is warm and dry on exposed skin Neurologic & Musculoskeletal Exam Upper Extremity Region Exam Left (+/-) Right (+/-) Comments Cervical Musculature Tender w/ palpation + + Cervical Facet Pain w/ extension + + Upper Extremity Spurling's - - Upper Extremity Bakody - - Sensation Left Right Comments Neck Normal Normal C5: Shoulder Normal Normal C6: Thumb, radial aspect of hand/forearm (Radial Nerve) Normal Normal C7: Long finger (Median Nerve) Normal Normal C8: Little finger, ulnar aspect of hand/forearm (Ulnar n.) Normal Normal T1; Medial forearm/arm Normal Normal Motor Strength Left Right Comments C5: Shoulder abduction (Deltoid) 07/15 07/15 C5: Elbow flexion (Biceps, Brachialis) 07/15 07/15 C6: Wrist extension (ECRB, ECRL) 07/15 07/15 C7: Elbow extension (Triceps) 07/15 07/15 C8: Finger flexion (High Density Press Operator strength) 07/15 07/15 T1: Finger abduction 07/15 07/15 Reflexes Left Right C5: Biceps 2/4 2/4 C6: Brachioradialis 2/4 2/4 C7: Triceps 2/4 2/4 Sorenson's Absent Absent Clonus Absent Absent Lower Extremity Region Exam Left (+/-) Right (+/-) Comments Lumbar Musculature Tender w/ palpation - - Lumbar Facet Pain w/ extension + + Lumbar Region Pain w/ forward flexion - - Lower Extremity Slump + - Lower Extremity SLR - - Sensation Left Right Comments L2: Proximal Anterior Thigh Normal Normal L3: Mid Anterior Thigh Normal Normal L4: Medial leg/foot, great toe (Saphenous n.) Normal Normal L5: Dorsum of mid foot Normal Normal S1: Lateral leg/foot, little toe, back of leg (Sural n.) Normal Normal Motor Strength Left Right Comments L2: Hip flexion (iliopsoas) 07/15 07/15 L3: Knee extension (quad) 07/15 07/15 L4: Ankle DF (TA) 07/15 07/15 L5: Great Toe DF (EHL) 07/15 07/15 S1: Ankle PF, Foot Eversion (Peroneal longus/brevis) 07/15 07/15 S2: Great toe flexion (FHL), Knee Flexion 07/15 5/5 Reflexes Left Right L4: Patellar 2/4 2/4 S1: Achilles 2/4 2/4 Clonus None None Region Exam Left (+/-) Right (+/-) Comments Sacroiliac Joint Bhupinder's Finger (PSIS) - - Tenderness to palpation - - KARELY - - Gaenslen's - - Compression - - Distraction - - Imaging/Studies: Images of the following studies have been personally reviewed and my independent interpretation reveals as written: 07/01/24 L Spine MRI (read only) 01/01/22 C Spine X- ray (read only) -Reversal the normal cervical lordosis. Mild anterolisthesis C2 on C3, C3 on C4 and C4 on C5. Disc degenerative disease most advanced at C5-6. Facet arthropathy most advanced at C2-3, C5-6 and C6-7. Labs: Lab Results Component Value Date PLT 386 (H) 12/08/2021 Lab Results Component Value Date INR 1.1 09/18/2018 Lab Results Component Value Date HGBA1C 5.7 (H) 11/29/2021 Assessment & Plan: Tiffany Finn is a 54 y.o. female #Lumbar Radicular Syndrome, Chronic Worsening -Symptoms in the Left L5 and S1 dermatome - patient reports low back and leg pain most bothersome on exam today -Will trial a L5-S1 interlaminar epidural steroid injection -Follow up 2-4 weeks post-procedure #Axial Low Back Pain, Chronic Worsening #Lumbar Spondylosis #Facetogenic pain -Can consider Trial of Bilateral L4/L5 and L5/S1 mbb first diagnostic block performed with fluoroscopy pending LESI as above -If successful, will confirm with second diagnostic block then proceed to RFA performed with fluoroscopy #Axial Neck Pain, Chronic Worsening #Cervical Spondylosis #Facetogenic pain - will order updated cervical spine x-rays -Can consider trial a Bilateral Cervical mbb first diagnostic block performed with fluoroscopy pending image review -If successful, will confirm with second diagnostic block then proceed to RFA performed with fluoroscopy Cosigned by Osmani Carter MD at 07/23/2024 10:00 AM EDT Associated attestation - Osmani Carter MD - 07/23/2024 10:00 AM EDT I saw and evaluated the patient with the resident/fellow. I discussed the case with the resident/fellow and agree with the findings and plan as documented. documented in this encounter Plan of Treatment Upcoming Encounters Date Type Department Care Team (Late st Contact Info) Description 09/17/2024 10:20 AM EDT Office Visit [facility] Interventional Pain Medicine [address] [place] [address] Osmani Carter MD [address] [facility] [address] [place] [address] Scheduled Orders Name Type Priority Associated Diagnoses Orde r Schedule XR Cervical Spine 2 or 3 Views (AP/Lat) Imaging Routine Spondylosis of cervical region without myelopathy or radiculopathy Expected: 07/23/2024 (Approximate), Expires: 01/23/2026 documented as of this encounter Results * [place] NJX DX/THER SBST INTRLMNR LMBR/SAC W/IMG GDN (08/09/2024 11:30 AM EDT) Narrative Osmani Carter MD - 08/09/2024 11:30 AM EDT Osmani Carter MD 08/09/2024 11:34 AM Interlaminer Epidural - Lumbar / Sacral Performed by: Dalia Durno DO Authorized by: Osmani Carter MD us Osmani Carter MD IN CLINIC/BEDSIDE ORDER YA Final Result documented in this encounter Visit Diagnoses Diagnosis Spondylosis of lumbar region without myelopathy or radiculopathy- Primary Spondylosis without myelopathy or radiculopathy, cervical region Spondylosis of cervical region without myelopathy or radiculopathy Lumbar radiculopathy- Primary Thoracic or lumbosacral neuritis or radiculitis, unspecified Spondylosis of lumbar region without myelopathy or radiculopathy documented in this encounter Additional Health Concerns Assessment Noted Time A fall risk assessment has been complete d for the patient 07/23/2024 9:12 AM EDT A Body Mass Index follow-up plan has been documented for the patient 07/23/2024 11:21 AM EDT documented as of this encounter Care Teams Therapeutic Mentor Relationship Specialty Start Date End Date Melanie Tolliver APRN [address] [place] [address] PCP - General 07/05/24 documented as of this encounter
--- OUTSIDE RECORDS SUMMARY | 2024-08-09 11:30 | XMS_ITS | Encounter Summary ---
Author Organization Healthcare Address [address] [place] [address] Care Team Providers Care Lease Attendant Name Role Phone Melanie Tolliver APRN Primary Care Provider [phone] Reason for Visit * Reason Comments Injections * Other Medical (Routine) - Closed Specialty Diagnoses / Procedures Referred By Contac t Referred To Contact Pain Medicine Diagnoses Spondylosis of lumbar region without myelopathy or radiculopathy Procedures Interlaminer Epidural - Lumbar / Sacral Osmani Carter MD [address] [facility] [address] [address] Phone: tel: fax: [facility] Interventional Pain Medicine [address] [place] [phone] Phone: tel: fax: Referral ID Status Reason Start Date Expiration Date Visits Re quested Visits Authorized [id number] Closed 07/23/2024 01/22/2026 1 1 Encounter Details Date Type Department Care Team (Late st Contact Info) Description 08/09/2024 11:30 AM EDT Procedure Visit [facility] Interventional Pain Medicine [address] [place] [address] Osmani Carter MD [address] [facility] [address] [address] Lumbar radiculopathy (Primary Dx); Spondylosis of lumbar region without myelopathy or radiculopathy Social History [...] Sign Reading Time Taken Comments Blood Pressure 109/70 08/09/2024 11:16 AM EDT Pulse 90 08/09/2024 11:16 AM EDT Temperature 36.3 C (97.3 F) 08/09/2024 10:55 AM EDT Respiratory Rate 16 08/09/2024 11:16 AM EDT Oxygen Saturation 90% 08/09/2024 11:16 AM EDT Inhaled Oxygen Concentration - - Weight 88.5 kg (195 lb) 08/09/2024 10:55 AM EDT Height 172.7 cm (5' 8 ) 08/09/2024 10:55 AM EDT Body Mass Index 29.65 08/09/2024 10:55 AM EDT documented in this encounter Miscellaneous Notes * Clinician Note - Jovita Lares RN - 08/09/2024 11:30 AM EDT Patient ID: Tiffany Finn is a 54 y.o. female. Procedure: LESI Pre-Procedure Pre-Procedure Checklist Procedure verified with patient/guardian: yes Consent signed, dated, timed, and present: yes History and Physical performed: yes Nursing Assessment performed: yes Pre-Procedure/Sedation Assessment and Plan performed: yes Discharge instructions reviewed with patient/guardian: yes Plan of Care reviewed with patient/guardian: yes Patient's/Guardian's questions addressed: yes Pre-Procedure Questions Last dose of blood thinner: Pt denies Multiple Punch Press Operator present: yes Review of Systems General appearance: normal Respiratory effort: normal Mobility: normal Skin: normal Orientation to person, time, and place: normal Mood and affect: normal Intra-Procedure Prep & Positioning The patient was prepped and draped in usual sterile fashion and placed in a prone position. Time Out A timeout was called at 11:09 AM, immediately prior to the procedure, in accordance with [employer]. Procedure Start Time: 11:11 AM Procedure End Time: 11:13 AM Fluoro Time: 13 seconds Fluoro Dose: 2.502 mGy Post-Procedure Discharge Status Orientation to person, time, and place: normal Mood and affect: normal Discharge disposition: home Mode of exit: walked @ 1120 am Patient verbalizes understanding of follow-up appointments, post-procedure care, and medications. * Progress Notes - Dalia uDron DO - 08/09/2024 11:30 AM EDTAssociated Order(s): Interlaminer Epidural - Lumbar / Sacral Pre-Procedure Diagnose(s): Spondylosis of lumbar region without myelopathy or radiculopathy Post-Procedure Diagnose(s): Spondylosis of lumbar region without myelopathy or radiculopathy Patient ID: Tiffany Finn is a 54 y.o. female. Encounter Diagnosis Name Primary? Spondylosis of lumbar region without myelopathy or radiculopathy Lumbar radiculopathy Patient seen and evaluated prior to their procedure.There is nothing in the patient's overall condition that would affect the planned course of the patient's treatment today that requires additional interventions to reduce risk to the patient. Interlaminer Epidural - Lumbar / Sacral Performed by: Dalia Duron DO Authorized by: Osmani Carter MD Procedure(s): L5-S1 Lumbar Interlaminar Epidural Steroid injection Anesthesia Type: local only Complications: none Follow-up Plan: Clinic follow up as scheduled Procedure: This patient was seen earlier for a comprehensive evaluation of their painful condition.After discussing treatment options, the patient elected to proceed with a lumbar interlaminar epidural steroid injection. Written, informed consent was obtained before the start of the procedure. Thepatient's history of present illness, past medical history (including current medications and allerg ies), and physical examination were reviewed with the patient immediately before the procedure, andit was confirmed directly with the patient that they desired to proceed. The patient ambulated to the operating room and was placed in the prone position with pressure points padded. A time out was performed, confirming the patient's identification, allergy status, the side(s) of the procedure, and the procedure(s) to be performed. All operators were wearing hats, masksand sterile gloves. The patient underwent ChloraPrep skin prep followed by sterile drape. The interlaminar space was then identified by fluoroscopy and marked. The patient received 1% lidocaine for local anesthesia subcutaneously. An 20-gauge 9 cm Tuohy needle was then advanced under fluoroscopic guidance using a coaxial approach, loss of resistance to saline until the epidural space was entered. After negative aspiration, under live fluoroscopy in the anterior-posterior position, 1 mL of contrast solution was injected. This demonstrated appropriate epidural spread and was negative for intravascular or intrathecal flow. After confirmation of proper positioning of the needle within the epidural space 40 mg of DepoMedrol was injected with 3 mL of normal saline. The stylette was replaced and the needle was then removed. Sterile bandage was applied over the puncture site. Following completion of the procedure, the patient was transported to the PACU, then was later discharged in stable condition. Cosigned by Osmani Carter MD at 08/09/2024 11:34 AM EDT Associated attestation - Osmani Carter MD - 08/09/2024 11:34 AM EDT I was present for the entirety of the procedure(s). documented in this encounter Plan of Treatment Upcoming Encounters Date Type Department Care Team (Late st Contact Info) Description 09/17/2024 10:20 AM EDT Office Visit [facility] Interventional Pain Medicine [address] [place] [phone] Osmani Carter MD [address] [facility] [address] [place] [address] documented as of this encounter Procedures Procedure Name Priority Date/Time Associated Diagnosis Comments MN NJX DX/THER SBST INTRLMNR LMBR/SAC W/IMG GDN Routine 08/09/2024 11:30 AM EDT Spondylosis of lumbar region without myelopathy or radiculopathy documented in this encounter Results * MN NJX DX/THER SBST INTRLMNR LMBR/SAC W/IMG GDN (08/09/2024 11:30 AM EDT) Narrative Osmani Carter MD - 08/09/2024 11:30 AM EDT Osmani Carter MD 08/09/2024 11:34 AM Interlaminer Epidural - Lumbar / Sacral Performed by: Dalia Duron DO Authorized by: Osmani Carter MD Osmani Carter MD IN CLINIC/BEDSIDE ORDER YA Final Result documented in this encounter Visit Diagnoses Diagnosis Lumbar radiculopathy- Primary Thoracic or lumbosacral neuritis or radiculitis, unspecified Spondylosis of lumbar region without myelopathy or radiculopathy documented in this encounter Administered Medications Inactive Administered Medications - up to 3 most recent administrations Medication Order MAR Action Action Date Dose Rate Site iohexol (OMNIPaque) 300 MG/ML injection 10 mL 10 mL, Other, Once in imaging, 1 dose, Starting on Mon08/09/24 at 1110, Until Mon08/09/24 at 1110, RoutineIndications:Spondylosis of lumbar region without myelopathy or radiculopathy Given by Other 08/09/2024 11:10 AM EDT 10 mL lidocaine PF (Xylocaine) 1 % injection 300 mg 300 mg (30 mL), Injection, Once, 1 dose, On Mon08/09/24 at 1200, RoutineIndications:Spondylosis of lumbar region without myelopathy or radiculopathy Given by Other 08/09/2024 11:10 AM EDT 300 mg methylPREDNISolone acetate (DEPO-Medrol) injection 40 mg 40 mg, Intra-articular, Once, 1 dose, On Mon08/09/24 at 1200, RoutineIndications:Spondylosis of lumbar region without myelopathy or radiculopathy Given by Other 08/09/2024 11:10 AM EDT 40 mg sodium chloride (PF) 0.9 % injection 20 mL 20 mL, Intracatheter, Once, 1 dose, On Mon08/09/24 at 1200, RoutineIndications:Spondylosis of lumbar region without myelopathy or radiculopathy Given by Other 08/09/2024 11:10 AM EDT 20 mL documented in this encounter Additional Health Concerns Assessment Noted Time A fall risk assessment has been complete d for the patient 08/09/2024 10:55 AM EDT A Body Mass Index follow-up plan has been documented for the patient 08/09/2024 11:34 AM EDT documented as of this encounter Care Teams Lease Attendant Relationship Specialty Start Date End Date Melanie Tolliver APRN [address] [place] [address] PCP - General 07/05/24 documented as of this encounter
--- OUTSIDE RECORDS SUMMARY | 2024-08-26 13:31 | XMS_ITS | Encounter Summary ---
Author Organization Healthcare Address [address] [place] [address] Care Team Providers Care Control Manager Name Role Phone Emmett Boyd DO Primary Care Provider Melanie Tolliver APRN Primary Care Provider [phone] Encounter Details Date Type Department Care Team (Late st Contact Info) Description 11/29/2021 Lab Requisition [facility] [address] [place] [address] Vanesa Burrell MD [address] [place] [phone] Routine general medical examination at a health care facility Social History Tobacco Use Types Packs/Day Years Used Date Smoking Tobacco: Never Assessed Comments Unknown Sex and Gender Information Value Date Recorded Sex Assigned at Not on file Legal Sex Female 7:34 PM EDT Gender Identity Not on file Sexual Orientation Not on file documented as of this encounter Plan of Treatment Upcoming Encounters Date Type Department Care Team (Late st Contact Info) Description 09/17/2024 10:20 AM EDT Office Visit [facility] Interventional Pain Medicine [address] [place] [address] Osmani Carter MD [address] [facility] [address] [place] [address] documented as of this encounter Visit Diagnoses Diagnosis Routine general medical examination at a health care facility documented in this encounter Care Teams Control Manager Relationship Specialty Start Date End Date Emmett Boyd DO [address] [place] [address] [address] [place] [address] PCP - General 07/24/20 07/04/24 Melanie Tolliver APRN [address] [place] [address] PCP - General 07/05/24 documented as of this encounter
--- OUTSIDE RECORDS SUMMARY | 2024-08-26 13:31 | XMS_ITS | Encounter Summary ---
Author Organization Healthcare Address [address] [place] [address] Care Team Providers Care National Sales Name Role Phone DebEmmett sanchez Primary Care Provider Melanie Tolliver APRN Primary Care Provider [phone] Encounter Details Date Type Department Care Team (Late st Contact Info) Description 11/28/2021 Lab Requisition [facility] [address] [place] [address] Vanesa Burrell MD [address] [place] [phone] Encounter for screening for COVID-19 Social History Tobacco Use Types Packs/Day Years [...] Description 09/17/2024 10:20 AM EDT Office Visit [facility] Interventional Pain Medicine [address] [facility] [place] [address] Osmani Carter MD [address] [facility] [address] [place] [address] documented as of this encounter Procedures Procedure Name Priority Date/Time Associated Diagnosis Comments SARS COV-2/COVID-19 BY PCR - RAPID Routine 11/28/2021 4:40 AM EDT Encounter for screening for COVID-19 documented in this encounter Results * SARS CoV-2/COVID-19 by PCR - Rapid (11/28/2021 4:40 AM EDT) SARS CoV-2/COVID-1 9 RNA PCR Result Not Detected Not Detected 11/28/2021 7:36 AM EDT [facility] Swab Nasopharyngeal structure / Unknown 11/28/2021 4:40 AM EDT 11/28/2021 6:55 AM EDT Narrative [facility] - 11/28/2021 7:36 AM EDT This assay is for in vitro diagnostic use under FDA emergency use authorization only. Negative results do not preclude infection with the SARS CoV-2 virus and should not be the sole basis of a patient treatment/management or public health decision. Follow up testing should be performed according to the current CDC recommendations. This test was performed on the Xpert Xpress SARS CoV-2 test, a PCR-based method. Negative results should be considered presumptive and do not preclude current or future infection obtained through community transmission or other exposures. Negative results must be considered in the context of an individual's recent exposures, history, presence of clinical signs and symptoms consistent with COVID-19. us Vanesa Burrell MD LAB MICROBIOLOGY - GENERAL ORD ERABLES Final Result [facility] [address] [place] [address] documented in this encounter Visit Diagnoses Diagnosis Encounter for screening for COVID-19 documented in this encounter Care Teams National Sales Relationship Specialty Start Date End Date Emmett Boyd DO [address] [place] [address] PCP - General 07/24/20 07/04/24 Melanie Tolliver APRN [address] [place] [address] PCP - General 07/05/24 documented as of this encounter
--- OUTSIDE RECORDS SUMMARY | 2024-08-26 13:31 | XMS_ITS | Encounter Summary ---
Author Organization Healthcare Address [address] [place] [address] Care Team Providers Care Rn Acute Name Role Phone Melanie Tolliver APRN Primary Care Provider Reason for Visit * Reason Onset Date Comments HCN - Patient Message 07/24/2024 Encounter Details Date Type Department Care Team (Late st Contact Info) Description 07/24/2024 Telephone [facility] Interventional Pain Medicine [address] [place] [address] Osmani Carter MD [address] [facility] [address] [place] [address] HCN - Patient Message Social History Tobacco Use Types Packs/Day Years Used Date Smoking Tobacco: Former Cigarettes Smokeless Tobacco: Never Comments Unknown Sex and Gender Information Value Date Recorded Sex Assigned at Not on file Legal Sex Female 7:34 PM EDT Gender Identity Not on file Sexual Orientation Not on file documented as of this encounter Miscellaneous Notes * Telephone Encounter - Paulnie Coto - 07/24/2024 10:42 AM EDT THIS HAS BEEN FAXED ACCORDING TO THE REQUEST * Telephone Encounter - Eric Dunaway - 07/24/2024 9:01 AM EDT Clinical Concern/Question Reason for Call: Dr. Carter pt called to ask that her xray order be sent to [facility]. Best contact number: [phone] (mobile) Optimal time of day to reach caller: ANYTIME Additional comments/information from caller: None Note: Please do not reply to this message. Follow-up communication and further actions as a result of this message need to be communicated with the patient directly, if the patient is not active onMyChart. If the patient is active on MyChart, they will receive notification of the communication/outcome via MyChart. documented in this encounter Plan of Treatment Upcoming Encounters Date Type Department Care Team (Late st Contact Info) Description 09/17/2024 10:20 AM EDT Office Visit [facility] Interventional Pain Medicine [address] [place] [address] Osmani Carter MD [address] [facility] [address] [place] [address] documented as of this encounter Visit Diagnoses Not on filedocumented in this encounter Additional Health Concerns Assessment Noted Time A fall risk assessment has been complete d for the patient 07/23/2024 9:12 AM EDT A Body Mass Index follow-up plan has been documented for the patient 07/23/2024 11:21 AM EDT documented as of this encounter Care Teams Rn Acute Relationship Specialty Start Date End Date Melanie Tolliver APRN [address] [place] [address] PCP - General 07/05/24 documented as of this encounter
--- OUTSIDE RECORDS SUMMARY | 2024-08-26 13:31 | XMS_ITS | Encounter Summary ---
Author Organization Healthcare Address [address] [place] [address] Care Team Providers Care Supervisor Public Message Service Name Role Phone Melanie Tolliver APRN Primary Care Provider Encounter Details Date Type Department Care Team (Latest Contact Info) Description 07/23/2024 Travel Social History Tobacco Use Types Packs/Day Years [...] 10:20 AM EDT Office Visit [facility] Interventional Pain Medicine [address] [facility] [place] [address] Osmani Carter MD [address] [facility] [address] [place] [address] documented as of this encounter Visit Diagnoses Not on filedocumented in this encounter Additional Health Concerns Assessment Noted Time A fall risk assessment has been complete d for the patient 07/23/2024 9:12 AM EDT A Body Mass Index follow-up plan has been documented for the patient 07/23/2024 11:21 AM EDT documented as of this encounter Care Teams Supervisor Public Message Service Relationship Specialty Start Date End Date Melanie Tolliver APRN [address] [place] [address] PCP - General 07/05/24 documented as of this encounter
--- OUTSIDE RECORDS SUMMARY | 2024-08-26 13:31 | XMS_ITS | Encounter Summary ---
Author Organization Healthcare Address [address] [place] [address] Care Team Providers Care Circulating Nurse Name Role Phone Melanie Tolliver APRN Primary Care Provider [phone] Reason for Visit * Reason Onset Date Comments HCN Clinical Concern/Question 08/22/2024 HCN Paperwork/Documentation Request 08/22/2024 Encounter Details Date Type Department Care Team (Late st Contact Info) Description 08/22/2024 Telephone [facility] Interventional Pain Medicine [address] [place] [address] Osmani Carter MD [address] [facility] [address] [place] [address] HCN Clinical Concern/Question; HCN Paperwork/Documentat ion Request Social History Tobacco Use Types Packs/Day Years Used Date Smoking Tobacco: Former Cigarettes Smokeless Tobacco: Never Comments Unknown Sex and Gender Information Value Date Recorded Sex Assigned at Not on file Legal Sex Female 7:34 PM EDT Gender Identity Not on file Sexual Orientation Not on file documented as of this encounter Miscellaneous Notes * Telephone Encounter - Pauline Coto - 08/22/2024 1:19 PM EDT THIS HAS BEEN FAXED ACCORDING TO THE REQUEST * Telephone Encounter - Kika Hines - 08/22/2024 11:47 AM EDT Paperwork/Documentation Request Patient Name: Tiffany Spangler Finn Type: Xray Cervical spine orders Due Date: chelsea Send To: [facility] fax [phone] Best contact number: [phone] (mobile) Optimal time of day to reach caller: ANYTIME Additional comments/information from caller: None Note: Please do not reply to this message. Follow-up communication and further actions as a result of this message need to be communicated with the patient directly, if the patient is not active onMyChart. If the patient is active on MyChart, they will receive notification of the communication/outcome via [employer]. documented in this encounter Plan of Treatment Upcoming Encounters Date Type Department Care Team (Late st Contact Info) Description 09/17/2024 10:20 AM EDT Office Visit [facility] Interventional Pain Medicine [address] [facility] [place] [address] Osmani Carter MD [address] [facility] [address] [place] [address] documented as of this encounter Visit Diagnoses Not on filedocumented in this encounter Additional Health Concerns Assessment Noted Time A fall risk assessment has been complete d for the patient 08/09/2024 10:55 AM EDT A Body Mass Index follow-up plan has been documented for the patient 08/09/2024 11:34 AM EDT documented as of this encounter Care Teams Circulating Nurse Relationship Specialty Start Date End Date Melanie Tolliver APRN [address] [place] [address] PCP - General 07/05/24 documented as of this encounter
--- OUTSIDE RECORDS SUMMARY | 2024-08-26 13:31 | XMS_ITS | Encounter Summary ---
Author Organization Healthcare Address [address] [place] [address] Care Team Providers Care Feather Baler Name Role Phone Melanie Tolliver APRN Primary Care Provider Encounter Details Date Type Department Care Team (Late Contact Info) Description 08/09/2024 Orders Only External Location [address] [place] [address] Provider, External Social History Tobacco Use Types Packs/Day Years Used Date Smoking Tobacco: Former Cigarettes Smokeless Tobacco: Never Comments Unknown Sex and Gender Information Value Date Recorded Sex Assigned at Not on file Legal Sex Female 7:34 PM EDT Gender Identity Not on file Sexual Orientation Not on file documented as of this encounter Plan of Treatment Upcoming Encounters Date Type Department Care Team (Late Contact Info) Description 09/17/2024 10:20 AM EDT Office Visit [facility] Interventional Pain Medicine [address] [facility] [place] [address] Osmani Carter MD [address] [facility] [address] [place] [address] documented as of this encounter Procedures Procedure Name Priority Date/Time Associated Diagnosis Comments POC ULTRASOUND 08/09/2024 documented in this encounter Results * POC Imaging (08/09/2024) Anatomical Region Laterality Modality Pelvis Other 08/09/2024 us External Provider IMG POINT OF CARE ULTRASOUND F inal Result documented in this encounter Visit Diagnoses Not on filedocumented in this encounter Additional Health Concerns Assessment Noted Time A fall risk assessment has been complete d for the patient 08/09/2024 10:55 AM EDT A Body Mass Index follow-up plan has been documented for the patient 08/09/2024 11:34 AM EDT documented as of this encounter Care Teams Feather Baler Relationship Specialty Start Date End Date Melanie Tolliver APRN [address] [place] [address] PCP - General 07/05/24 documented as of this encounter
--- OUTSIDE RECORDS SUMMARY | 2024-08-26 13:31 | XMS_ITS | Encounter Summary ---
Author Organization Healthcare Address [address] [place] [address] Care Team Providers Care Hydrologic Modeler Name Role Phone DebEmmett Bridger HOLCOMB Primary Care Provider [phone] Melanie Tolliver APRN Primary Care Provider [phone] Encounter Details Date Type Department Care Team (Late st Contact Info) Description 11/29/2021 Lab Requisition [facility] [address] [place] [address] Vanesa Burrell MD [address] [place] [phone] Routine general medical examination at a [...] Description 09/17/2024 10:20 AM EDT Office Visit [facility] Interventional Pain Medicine [address] [facility] [place] [address] Osmani Carter MD [address] [facility] [address] [place] [address] documented as of this encounter Procedures Procedure Name Priority Date/Time Associated Diagnosis Comments ACUTE HEPATITIS PANEL Routine 11/29/2021 3:30 PM EDT Routine general medical examination at a health care facility [ICD-10-CM] CBC WITH AUTO DIFFERENTIAL Routine 11/29/2021 3:30 PM EDT Routine general medical examination at a health care facility [ICD-10-CM] TSH Routine 11/29/2021 3:30 PM EDT Routine general medical examination at a health care facility [ICD-10-CM] HEMOGLOBIN A1C Routine 11/29/2021 3:30 PM EDT Routine general medical examination at a health care facility [ICD-10-CM] LIPID PROFILE, PLASMA Routine 11/29/2021 3:30 PM EDT Routine general medical examination at a health care facility [ICD-10-CM] COMPREHENSIVE METABOLIC PANEL, PLASMA Routine 11/29/2021 3:30 PM EDT Routine general medical examination at a health care facility [ICD-10-CM] documented in this encounter Results * TSH (11/29/2021 3:30 PM EDT) Thyroid Stimulating Hormone, Plasma 2.35 0.40 - 4.20 uIU/mL 11/29/2021 8:26 PM EDT [facility] Blood Venous blood specimen / Unknown Venipuncture / Unknown 11/29/2021 3:30 PM EDT 11/29/2021 3:37 PM EDT Narrative [facility] - 11/29/2021 8:26 PM EDT Trimester Specific Ranges TSH ( IU/mL) 1st Trimester 0.1 - 3.0 2nd Trimester 0.19 - 4.06 3rd Trimester 0.3 - 3.7 us Vanesa Burrell MD LAB BLOOD ORDERABLES Final Res ult [facility] [address] [place] [address] * (ABNORMAL) CBC and Differential (11/29/2021 3:30 PM EDT) WBC Count 10.87(H) 3.70 - 10.30 10*3/uL LAB HEMATOLOGY METHOD 11/29/2021 8:08 PM EDT [facility] RBC Count 4.98 3.90 - 5.20 10*6/uL LAB HEMATOLOGY METHOD 11/29/2021 8:08 PM EDT [facility] HGB 13.2 11.2 - 15.7 g/dL LAB HEMATOLOGY METHOD 11/29/2021 8:08 PM EDT [facility] HCT 40.9 34.0 - 45.0 % LAB HEMATOLOGY METHOD 11/29/2021 8:08 PM EDT [facility] Platelet Count 430(H) 155 - 369 10*3/uL LAB HEMATOLOGY METHOD 11/29/2021 8:08 PM EDT [facility] MCV 82 79 - 98 fL LAB HEMATOLOGY METHOD 11/29/2021 8:08 PM EDT [facility] MCH 26.5 26.0 - 32.0 pg LAB HEMATOLOGY METHOD 11/29/2021 8:08 PM EDT [facility] MCHC 32.3 30.7 - 35.5 g/dL LAB HEMATOLOGY METHOD 11/29/2021 8:08 PM EDT [facility] RDW 14.7(H) 11.5 - 14.5 % LAB HEMATOLOGY METHOD 11/29/2021 8:08 PM EDT [facility] MPV 11.0 8.8 - 12.5 fL LAB HEMATOLOGY METHOD 11/29/2021 8:08 PM EDT [facility] nRBC 0.0 <=0.0 per 100 WBCs LAB HEMATOLOGY METHOD 11/29/2021 8:08 PM EDT [facility] Differential Type Automated LAB HEMATOLOGY METHOD 11/29/2021 8:08 PM EDT [facility] Neutrophils % 63.0 % LAB HEMATOLOGY METHOD 11/29/2021 8:08 PM EDT [facility] Lymphocytes % 31.0 % LAB HEMATOLOGY METHOD 11/29/2021 8:08 PM EDT [facility] Monocytes % 6.0 % LAB HEMATOLOGY METHOD 11/29/2021 8:08 PM EDT [facility] Eosinophils % 0.0 % LAB HEMATOLOGY METHOD 11/29/2021 8:08 PM EDT [facility] Basophils % 0.0 % LAB HEMATOLOGY METHOD 11/29/2021 8:08 PM EDT [facility] Immature Granulocytes % 0.0 % LAB HEMATOLOGY METHOD 11/29/2021 8:08 PM EDT [facility] Neutrophils Absolute 6.75(H) 1.60 - 6.10 10*3/uL LAB HEMATOLOGY METHOD 11/29/2021 8:08 PM EDT [facility] Lymphocytes Absolute 3.34 1.20 - 3.90 10*3/uL LAB HEMATOLOGY METHOD 11/29/2021 8:08 PM EDT [facility] Monocytes Absolute 0.67 0.30 - 0.90 10*3/uL LAB HEMATOLOGY METHOD 11/29/2021 8:08 PM EDT [facility] Eosinophils Absolute 0.04 0.00 - 0.50 10*3/uL LAB HEMATOLOGY METHOD 11/29/2021 8:08 PM EDT [facility] Basophils Absolute 0.04 0.00 - 0.10 10*3/uL LAB HEMATOLOGY METHOD 11/29/2021 8:08 PM EDT [facility] Immature Granulocytes Absolute 0.03 0.00 - 0.06 10*3/uL LAB HEMATOLOGY METHOD 11/29/2021 8:08 PM EDT [facility] Blood Venous blood specimen / Unknown Venipuncture / Unknown 11/29/2021 3:30 PM EDT 11/29/2021 3:37 PM EDT Narrative [facility] - 11/29/2021 8:08 PM EDT Therapeutic decision making should be based on absolute values, rather than percentages. us Vanesa Burrell MD LAB BLOOD ORDERABLES Final Res ult [facility] [address] [place], [place] [id number] * (ABNORMAL) Hemoglobin A1c (11/29/2021 3:30 PM EDT) Hemoglobin A1c 5.7(H) <5.7 % 11/29/2021 8:26 PM EDT [facility] Blood Venous blood specimen / Unknown Venipuncture / Unknown 11/29/2021 3:30 PM EDT 11/29/2021 3:37 PM EDT Narrative [facility] - 11/29/2021 8:26 PM EDT HA1C Interpretive Data: Diagnosis of Diabetes: Diabetic > or = 6.5% Pre-diabetic 5.7 to 6.4% Non-diabetic < or = 5.6% Glycemic Targets for Type I and Type II Diabetics: Non- Adults <7.0% Adults <6.0% Children and Adolescents <7.5% Source: [place] [employer]. Standards of medical care in diabetes,2017. Diabetes Care.2017:40 (suppl 1):S1-S135. HbA1c assay performed by an ion-exchange chromatography method that is certified traceable to the DCCT. us Vanesa Burrell MD LAB BLOOD ORDERABLES Final Res ult [facility] [address] [place] [address] * Lipid panel (11/29/2021 3:30 PM EDT) Fasting greater than or equal to 8 hours? No 11/29/2021 8:26 PM EDT [facility] Comment:unknown if fasting Cholesterol, Plasma 174 <200 mg/dL 11/29/2021 8:26 PM EDT [facility] Comment: Cholesterol Reference Range (age >17 years): Desirable <200 mg/dL Borderline 200 to 239 mg/dL Undesirable >239 mg/dL HDL 77 >=50 mg/dL 11/29/2021 8:26 PM EDT [facility] Comment: HDL Cholesterol Reference Ranges (age >17 years): Female, acceptable > or = 50 mg/dL Male, acceptable > or = 40 mg/dL Triglycerides, Plasma 91 <150 mg/dL 11/29/2021 8:26 PM EDT [facility] Comment: Triglyceride Reference Range (age >17 years): Desirable: <150 mg/dL Borderline high: 150 to 199 mg/dL High: 200 to 499 mg/dL Very high: >499 mg/dL Increased risk of pancreatitis: >1000 mg/dL Cholesterol/HDL Ratio 2 11/29/2021 8:26 PM EDT [facility] LDL, Calculated 78.8 <100 mg/dL 8:26 PM EDT [facility] Comment: LDL Cholesterol Reference Range (age >17 years): Optimal: <100 mg/dL Near or above optimal: 100 - 129 mg/dL Borderline high: 130 - 159 mg/dL High: 160 - 189 mg/dL Very high: >189 mg/dL LDL Cholesterol Reference Range (age <18 years): Desirable: <110 mg/dL Borderline: 110 - 129 mg/dL Undesirable: >130 mg/dL Blood Venous blood specimen / Unknown Venipuncture / Unknown 11/29/2021 3:30 PM EDT 11/29/2021 3:37 PM EDT us Vanesa Burrell MD LAB BLOOD ORDERABLES Final Res ult [facility] [address] [place] [address] * (ABNORMAL) Comprehensive metabolic panel (11/29/2021 3:30 PM EDT) Pathologist [facility] Glucose, Plasma 107(H) 74 - 99 mg/dL 11/29/2021 8:26 PM EDT [facility] BUN, Plasma 33(H) 7 - 21 mg/dL 11/29/2021 8:26 PM EDT [facility] Creatinine, Plasma 2.06(H) 0.60 - 1.10 mg/dL 11/29/2021 8:26 PM EDT [facility] BUN/Creatinine Ratio 16 11/29/2021 8:26 PM EDT [facility] Sodium, Plasma 136 136 - 145 mmol/L 11/29/2021 8:26 PM EDT [facility] Potassium, Plasma 3.1(L) 3.7 - 4.8 mmol/L 11/29/2021 8:26 PM EDT [facility] Comment:Reference range for Serum potassium is 0.2 to 0.5 mmol/L higher than Plasma range. Chloride, Plasma 92(L) 97 - 107 mmol/L 11/29/2021 8:26 PM EDT [facility] CO2, Plasma 27 22 - 29 mmol/L 11/29/2021 8:26 PM EDT [facility] Anion Gap 17(H) 6 - 16 mmol/L 11/29/2021 8:26 PM EDT [facility] Total Calcium, Plasma 9.8 8.9 - 10.2 mg/dL 11/29/2021 8:26 PM EDT [facility] Total Protein 7.5 6.3 - 7.9 g/dL 11/29/2021 8:26 PM EDT [facility] Albumin, Plasma 4.8 3.5 - 5.2 g/dL 11/29/2021 8:26 PM EDT [facility] AST, Plasma 102(H) 11 - 32 U/L 11/29/2021 8:26 PM EDT [facility] ALT, Plasma 40(H) 8 - 33 U/L 11/29/2021 8:26 PM EDT [facility] Alkaline Phosphatase, Plasma 85 35 - 104 U/L 11/29/2021 8:26 PM EDT [facility] Total Bilirubin, Plasma 1.1 0.2 - 1.1 mg/dL 11/29/2021 8:26 PM EDT [facility] eGFRcr 28.4 mL/min/1.7 3m*2 11/29/2021 8:26 PM EDT [facility] Comment: Reported eGFRcr in mL/min/1.73m2 is based the CKD-EPI 202 equation that does not use a race coefficient. Effective 10/06/21 our laboratory changed the eGFR calculation to the CKD-EPI 2021 equation from the previously reported eGFR, based on the MDRD equation. For comparisons between the two equations, please see laboratory website: [email or web address] Blood Venous blood specimen / Unknown Venipuncture / Unknown 11/29/2021 3:30 PM EDT 11/29/2021 3:37 PM EDT us Vanesa Burrell MD LAB BLOOD ORDERABLES Final Res ult [facility] [address] [place] [address] * Hepatitis panel, acute (11/29/2021 3:30 PM EDT) Hepatitis B Surf Antigen Negative Negative 11/29/2021 8:57 PM EDT [facility] Hepatitis C Antibody Negative Negative 11/29/2021 8:57 PM EDT [facility] Hepatitis A Antibody IgM Negative Negative 11/29/2021 8:57 PM EDT [facility] Hepatitis B Core Antibody IgM Negative Negative 11/29/2021 8:57 PM EDT [facility] Blood Venous blood specimen / Unknown Venipuncture / Unknown 11/29/2021 3:30 PM EDT 11/29/2021 3:37 PM EDT us Vanesa Burrell MD LAB BLOOD ORDERABLES Final Res ult [facility] [address] [place] [address] documented in this encounter Visit Diagnoses Diagnosis Routine general medical examination at a health care facility documented in this encounter Care Teams Hydrologic Modeler Relationship Specialty Start Date End Date Emmett Boyd DO [address] [place] [address] PCP - General 07/24/20 07/04/24 Melanie Tolliver APRN [address] [place] [address] PCP - General 07/05/24 documented as of this encounter
--- OUTSIDE RECORDS SUMMARY | 2024-08-26 13:31 | XMS_ITS | Encounter Summary ---
Author Organization Healthcare Address [address] [place] [address] Care Team Providers Care Rinkman Name Role Phone Emmett Boyd DO Primary Care Provider Melanie Tolliver APRN Primary Care Provider [phone] Encounter Details Date Type Department Care Team (Late st Contact Info) Description 12/08/2021 Lab Requisition [facility] [address] [place] [phone] Em Young APRN [address] [place] [phone] Routine general medical examination at a health [...] Description 09/17/2024 10:20 AM EDT Office Visit [facility] Interventional Pain Medicine [address] [facility] [place] [address] Osmani Carter MD [address] [facility] [address] [place] [address] documented as of this encounter Procedures Procedure Name Priority Date/Time Associated Diagnosis Comments VITAMIN D 25 HYDROXY Routine 12/08/2021 7:20 AM EDT Routine general medical examination at a health care facility [ICD-10-CM] CBC WITH AUTO DIFFERENTIAL Routine 12/08/2021 7:20 AM EDT Routine general medical examination at a health care facility [ICD-10-CM] CONJUGATED BILIRUBIN, PLASMA Routine 12/08/2021 7:20 AM EDT Routine general medical examination at a health care facility [ICD-10-CM] COMPREHENSIVE METABOLIC PANEL, PLASMA Routine 12/08/2021 7:20 AM EDT Routine general medical examination at a health care facility [ICD-10-CM] documented in this encounter Results * Conjugated Bilirubin, Plasma (12/08/2021 7:20 AM EDT) Conjugated Bilirubin, Plasma <0.2 0.0 - 0.3 mg/dL 12/08/2021 10:17 AM EDT Alerts LAB Blood Venous blood specimen / Unknown Venipuncture / Unknown 12/08/2021 7:20 AM EDT 12/08/2021 8:13 AM EDT Em Young FISHERIES OFFICER LAB BLOOD ORDERABLES Dulce l Result Performing Organization Address City/[facility] de Phone Number HEALTHCARE LAB [address] [place] [address] * Vitamin D 25 Hydroxy (12/08/2021 7:20 AM EDT) Vitamin D 25 Hydroxy 36.3 20.0 - 80.0 ng/mL 12/08/2021 11:40 AM EDT [facility] Comment: Vitamin D, 25-Hydroxy reference range, age 18 years and up: Deficiency: <12 ng/mL Insufficiency: 12 to 19 ng/mL Sufficiency: 20 to 80 ng/mL Possible toxicity: >100 ng/mL Blood Venous blood specimen / Unknown Venipuncture / Unknown 12/08/2021 7:20 AM EDT 12/08/2021 8:15 AM EDT [employer] Young FISHERIES OFFICER LAB BLOOD ORDERABLES Dulce l Result [facility] [address] [place] [address] * (ABNORMAL) CBC and Differential (12/08/2021 7:20 AM EDT) WBC Count 8.18 3.70 - 10.30 10*3/uL LAB HEMATOLOGY METHOD 12/08/2021 10:33 AM EDT LAB RBC Count 4.16 3.90 - 5.20 10*6/uL LAB HEMATOLOGY METHOD 12/08/2021 10:33 AM EDT LAB HGB 11.3 11.2 - 15.7 g/dL LAB HEMATOLOGY METHOD 12/08/2021 10:33 AM EDT LAB HCT 35.5 34.0 - 45.0 % LAB HEMATOLOGY METHOD 12/08/2021 10:33 AM EDT LAB Platelet Count 386(H) 155 - 369 10*3/uL LAB HEMATOLOGY METHOD 12/08/2021 10:33 AM EDT LAB MCV 85 79 - 98 fL LAB HEMATOLOGY METHOD 12/08/2021 10:33 AM EDT LAB MCH 27.2 26.0 - 32.0 pg LAB HEMATOLOGY METHOD 12/08/2021 10:33 AM EDT LAB MCHC 31.8 30.7 - 35.5 g/dL LAB HEMATOLOGY METHOD 12/08/2021 10:33 AM EDT LAB RDW 14.9(H) 11.5 - 14.5 % LAB HEMATOLOGY METHOD 12/08/2021 10:33 AM EDT LAB MPV 11.3 8.8 - 12.5 fL LAB HEMATOLOGY METHOD 12/08/2021 10:33 AM EDT LAB nRBC 0.0 <=0.0 per 100 WBCs LAB HEMATOLOGY METHOD 12/08/2021 10:33 AM EDT LAB Differential Type Automated LAB HEMATOLOGY METHOD 12/08/2021 10:33 AM EDT LAB Neutrophils % 65.0 % LAB HEMATOLOGY METHOD 12/08/2021 10:33 AM EDT HEALTHCARE LAB Lymphocytes % 28.0 % LAB HEMATOLOGY METHOD 12/08/2021 10:33 AM EDT [facility]ALTHCARE LAB Monocytes % 6.0 % LAB HEMATOLOGY METHOD 12/08/2021 10:33 AM EDT [facility]ALTHCARE LAB Eosinophils % 1.0 % LAB HEMATOLOGY METHOD 12/08/2021 10:33 AM EDT HEALTHCARE LAB Basophils % 0.0 % LAB HEMATOLOGY METHOD 12/08/2021 10:33 AM EDT [facility]ALTHCARE LAB Immature Granulocytes % 0.0 % LAB HEMATOLOGY METHOD 12/08/2021 10:33 AM EDT LAB Neutrophils Absolute 5.31 1.60 - 6.10 10*3/uL LAB HEMATOLOGY METHOD 12/08/2021 10:33 AM EDT LAB Lymphocytes Absolute 2.27 1.20 - 3.90 10*3/uL LAB HEMATOLOGY METHOD 12/08/2021 10:33 AM EDT HEALTHCARE LAB Monocytes Absolute 0.45 0.30 - 0.90 10*3/uL LAB HEMATOLOGY METHOD 12/08/2021 10:33 AM EDT LAB Eosinophils Absolute 0.11 0.00 - 0.50 10*3/uL LAB HEMATOLOGY METHOD 12/08/2021 10:33 AM EDT LAB Basophils Absolute 0.02 0.00 - 0.10 10*3/uL LAB HEMATOLOGY METHOD 12/08/2021 10:33 AM EDT LAB Immature Granulocytes Absolute 0.02 0.00 - 0.06 10*3/uL LAB HEMATOLOGY METHOD 12/08/2021 10:33 AM EDT [facility]ALTHCARE LAB Blood Venous blood specimen / Unknown Venipuncture / Unknown 12/08/2021 7:20 AM EDT 12/08/2021 8:18 AM EDT Narrative HEALTHCARE LAB - 12/08/2021 10:33 AM EDT Therapeutic decision making should be based on absolute values, rather than percentages. Em Young APRN LAB BLOOD ORDERABLES Dulce l Result [facility] [address] [place] [address] * (ABNORMAL) Comprehensive metabolic panel (12/08/2021 7:20 AM EDT) Glucose, Plasma 103(H) 74 - 99 mg/dL 12/08/2021 10:17 AM EDT LAB BUN, Plasma 11 7 - 21 mg/dL 12/08/2021 10:17 AM EDT LAB Creatinine, Plasma 0.68 0.60 - 1.10 mg/dL 12/08/2021 10:17 AM EDT LAB BUN/Creatinine Ratio 16 12/08/2021 10:17 AM EDT LAB Sodium, Plasma 137 136 - 145 mmol/L 12/08/2021 10:17 AM EDT LAB Potassium, Plasma 4.8 3.7 - 4.8 mmol/L 12/08/2021 10:17 AM EDT LAB Comment:Reference range for Serum potassium is 0.2 to 0.5 mmol/L higher than Plasma range. Chloride, Plasma 100 97 - 107 mmol/L 12/08/2021 10:17 AM EDT LAB CO2, Plasma 26 22 - 29 mmol/L 12/08/2021 10:17 AM EDT LAB Anion Gap 11 6 - 16 mmol/L 12/08/2021 10:17 AM EDT LAB Total Calcium, Plasma 9.4 8.9 - 10.2 mg/dL 12/08/2021 10:[facility] Total Protein 7.0 6.3 - 7.9 g/dL 12/08/2021 10:17 [facility] Albumin, Plasma 4.3 3.5 - 5.2 g/dL 12/08/2021 10:17 AM EDT LAB AST, Plasma 24 11 - 32 U/L 12/08/2021 10:17 [facility] ALT, Plasma 23 8 - 33 U/L 12/08/2021 10:17 AM [facility] Alkaline Phosphatase, Plasma 67 35 - 104 U/L 12/08/2021 10:17 AM [facility] Total Bilirubin, Plasma 0.3 0.2 - 1.1 mg/dL 12/08/2021 10:17 AM EDT LAB eGFRcr 104.3 mL/min/1.7 3m*2 12/08/2021 10:17 AM [facility] Comment: Reported eGFRcr in mL/min/1.73m2 is based the CKD-EPI 2021 equation that does not use a race coefficient. Effective 10/06/21 our laboratory changed the eGFR calculation to the CKD-EPI 2021 equation from the previously reported eGFR, based on the MDRD equation. For comparisons between the two equations, please see laboratory website: [email or web address].[email or web address]/[email or web address] Blood Venous blood specimen / Unknown Venipuncture / Unknown 12/08/2021 7:20 AM EDT 12/08/2021 8:13 AM EDT us Em Young APRN LAB BLOOD ORDERABLES Dulce wiley Result Performing Organization Address City/State/[facility] Co hi Phone Number LAB [address] [place] [phone] documented in this encounter Visit Diagnoses Diagnosis Routine general medical examination at a health care facility documented in this encounter Care Teams Rinkman Relationship Specialty Start Date End Date Emmett Boyd DO [address] [place] [id number] PCP - General 07/24/20 07/04/24 Melanie Tolliver APRN [address] [place] [address] PCP - General 07/05/24 documented as of this encounter
--- OUTSIDE RECORDS SUMMARY | 2024-08-26 13:31 | XMS_ITS | Encounter Summary ---
Author Organization Healthcare Address [address] [place] [address] Care Team Providers Care Bottoming Room Inspector Name Role Phone Melanie Tolliver APRN Primary Care Provider [phone] Reason for Visit * Reason Onset Date Comments HCN - Patient Message 07/23/2024 Encounter Details Date Type Department Care Team (Late st Contact Info) Description 07/23/2024 Telephone [facility] Interventional Pain Medicine [address] [place] [address] Osmani Carter MD [address] [facility] [address] [place] [address] HCN - Patient Message Social [...] encounter Miscellaneous Notes * Telephone Encounter - Maureen Garcia - 07/23/2024 11:22 AM EDT Returned patients call. Rescheduled procedure appt * Telephone Encounter - Eric Dunaway - 07/23/2024 10:53 AM EDT Clinical Concern/Question Reason for Call: Dr. Carter pt is requesting a call back to r/s her upcoming [facility] appt. Best contact number: [phone] (mobile) Optimal time of day to reach [...] Description 09/17/2024 10:20 AM EDT Office Visit [facility] Interventional Pain Medicine [address] [facility] [place] [address] Osmani Carter MD [address] [facility] [address] [place] [address] documented as of this encounter Visit Diagnoses Not on filedocumented in this encounter Additional Health Concerns Assessment Noted Time A fall risk assessment has been complete d for the patient 07/23/2024 9:12 AM EDT A Body Mass Index follow-up plan has been documented for the patient 07/23/2024 11:21 AM EDT documented as of this encounter Care Teams Bottoming Room Inspector Relationship Specialty Start Date End Date Melanie Tolliver APRN [address] [place] [address] PCP - General 07/05/24 documented as of this encounter
--- OUTSIDE RECORDS SUMMARY | 2024-08-26 13:31 | XMS_ITS | Clinical Summary ---
Author Organization Healthcare Address [address] [place] [id number] Care Team Providers Care Commercial Airline Pilot Name Role Phone Melanie Tolliver APRN Primary Care Provider [phone] Allergies No known active allergies Medications DULoxetine (Cymbalta) [address] capsule Take 1 capsule (60 mg total) by mouth 2 (two) times a day. Do not crush or chew. 60 capsule 2 Active traZODone (Desyrel) 100 MG tablet Take 2 tablets (200 mg total) by mouth every night. 60 tablet 2 Active Additional Information Patient not taking.Reported on 08/09/2024 hydrOXYzine pamoate (Vistaril) 25 MG capsule Take 1 capsule (25 mg total) by mouth every 6 (six) hours if needed for anxiety for up to 10 days. 30 capsule 2 Active Additional Information Patient not taking.Reported on 08/09/2024 Alcohol Swabs pads use 1 pad topically twice a day As Needed for injection 5 Active Ventolin HFA 108 (90 Base) MCG/ACT inhaler 5 Active Vitamin D3 1.25 MG (27467 UT) capsule take 1 capsule(1250 mcg) orally weekly for 6 weeks 5 Active Earwax Removal 6.5 % otic solution place 5 drops into the ear(s) twice a day for 4 days 5 Active cycloSPORINE (Restasis) 0.05 % ophthalmic emulsion 5 Active divalproex (Depakote) [address] tablet 5 Active fluticasone (Flonase) 50 MCG/ACT nasal spray 5 Active esomeprazole (NexIUM) [address] capsule Take 1 capsule by mouth daily. 5 Active ibuprofen 800 MG tablet 5 Active Na Sulfate-K Sulfate-Mg Sulf 17.5-3.13-1.6 GM/177ML solution DILUTE; drink full amount early evening before AND next morning at least 2 hr before procedure; follow w 960 mL water 4 Active oxybutynin XL (Ditropan-XL) 10 MG 24 hr tablet 5 Active Invega Sustenna 234 MG/1.5ML suspension prefilled syringe Inject one (1) application into the muscle every 4 weeks 5 Active pregabalin (Lyrica) 150 MG capsule take 1 capsule(150 mg) orally daily 5 Active QUEtiapine (SEROquel) 200 MG tablet 5 Active Hospital, Clinic, or Other Facility Administered Medication Ordered Dose Route Frequency Start Date End Date Status lidocaine PF (Xylocaine) 1 % injection 300 mgIndications:Spondyl osis of lumbar region without myelopathy or radiculopathy 300 mg IJ Once 08/09/2024 08/09/2024 Ended iohexol (OMNIPaque) 300 MG/ML injection 10 mLIndications:Spondyl osis of lumbar region without myelopathy or radiculopathy 10 mL OTHER Once in imaging 08/09/2024 08/09/2024 Ended methylPREDNISolone acetate (DEPO-Medrol) injection 40 mgIndications:Spondyl osis of lumbar region without myelopathy or radiculopathy 40 mg IX Once 08/09/2024 08/09/2024 Ended sodium chloride (PF) 0.9 % injection 20 mLIndications:Spondyl osis of lumbar region without myelopathy or radiculopathy 20 mL IK Once 08/09/2024 08/09/2024 Ended Active Problems Problem Noted Date Diagnosed Date Lumbar radiculopathy 08/09/2024 Encounters Date Type Department Care Team Description 08/22/2024 Telephone [facility] Interventional Pain Medicine [address] [place] [address] Osmani Carter MD HCLarry Clinical Concern/Question; HCN Paperwork/Documenta tion Request 08/09/2024 11:30 AM EDT Procedure Visit [facility] Interventional Pain Medicine [address] [place] [address] Osmani Carter MD Lumbar radiculopathy (Primary Dx); Spondylosis of lumbar region without myelopathy or radiculopathy 08/09/2024 Orders Only External Location [address] [place] [address] Provider, External 08/09/2024 Travel 07/24/2024 Telephone [facility] Interventional Pain Medicine [address] [place] [address] Osmani Carter MD HCN - Patient Message 07/23/2024 9:00 AM EDT Office Visit [facility] Interventional Pain Medicine [address] [place] [phone] Osmani Carter MD Spondylosis of lumbar region without myelopathy or radiculopathy (Primary Dx); Spondylosis without myelopathy or radiculopathy, cervical region; Spondylosis of cervical region without myelopathy or radiculopathy 07/23/2024 Telephone [facility] Interventional Pain Medicine [address] [place] [address] Osmani Carter MD HCN - Patient Message 07/23/2024 Travel from Last 3 Months Immunizations Immunization Administration Dates Next Due Influenza, seasonal, injectable 02/10/2010 Pneumococcal Polysaccharide PPV23 03/21/2016 Social History Tobacco Use Types Packs/Day Years Used Date Smoking Tobacco: Former Cigarettes Smokeless Tobacco: Never Tobacco Cessation:Counseling Given: Not Answered Comments Unknown Sex and Gender Information Value Date Recorded Sex Assigned at Not on file Legal Sex Female 7:34 PM EDT Gender Identity Not on file Sexual Orientation Not on file Last Filed Vital Signs Vital Sign Reading [...] Mass Index 29.65 08/09/2024 10:55 AM EDT Plan of Treatment Upcoming Encounters Date Type Department Care Team (Late st Contact Info) Description 09/17/2024 10:20 AM EDT Office Visit [facility] Interventional Pain Medicine [address] [facility] [place] [address] Osmani Carter MD [address] [facility] [address] [place] [address] Health Maintenance Due Date Last Done Comments Dental Oral Exam 1968 Dental Prophylaxis 1968 Dental X-Ray: Bitewings 1968 Dental X-Ray: Full Mouth 1968 [facility]-Depression Screening 1968 [facility]-HIV Screening 1968 [facility]-Medicare Annual Wellness (AWV) 1968 [facility]-/Child/Adol SDOH Screenings 1968 [facility]- SDOH Screenings 01/28/1986 [facility]-Adult SDOH Screenings 01/28/1986 [facility]-DTaP,Tdap,and Td Vaccines (1 - Tdap) 01/28/1987 [facility]-Hepatitis B Vaccines (1 of 3 - 19+ 3-dose series) 01/28/1987 [facility]-Breast Cancer Screening 01/28/2018 [facility]-Zoster Vaccines (1 of 2) 01/28/2018 [facility]-BODIC-84 Vaccine (2 - season) 2023 06/18/2020 [facility]-Diabetes: Hemoglobin A1C Discontinued 11/29/2021 [facility]-Hepatitis C Screening Completed 2021, 09/18/2018 [facility]-Influenza Vaccine Completed 04/08/2024 , 01/14/2022, 02/10/2010 [facility]-Pneumococcal Vaccine: 50+ Years Completed 04/08/2024, 01/14/2022, 03/21/2016 [facility]-Obesity Intervention Completed 025, 07/23/2024 HPV Vaccines Aged Out No longer eligi ble based on patient's age to complete this topic [facility]-HIB Vaccines Aged Out No longer e ligible based on patient's age to complete this topic [facility]-Hepatitis A Vaccines Aged Out No longer eligible based on patient's age to complete this topic [facility]-IPV Vaccines Aged Out No longer e ligible based on patient's age to complete this topic [facility]-Rotavirus Vaccines Aged Out No lo nger eligible based on patient's age to complete this topic Procedures Procedure Name Priority Date/Time Associated Diagnosis Comments OR NJX DX/THER SBST INTRLMNR LMBR/SAC W/IMG GDN Routine 08/09/2024 11:30 AM EDT Spondylosis of lumbar region without myelopathy or radiculopathy POC ULTRASOUND 08/09/2024 ACUTE HEPATITIS PANEL Routine 11/29/2021 3:30 PM EDT Routine general medical examination at a health care facility [ICD-10-CM] HEMOGLOBIN A1C Routine 11/29/2021 3:30 PM EDT Routine general medical examination at a health care facility [ICD-10-CM] from Last 3 Months or Most Recently Relevant to Health Maintenance Results * OR NJX DX/THER SBST INTRLMNR LMBR/SAC W/IMG GDN (08/09/2024 11:30 AM EDT) Narrative Osmani Carter MD - 08/09/2024 11:30 AM EDT Osmani Carter MD 08/09/2024 11:34 AM Interlaminer Epidural - Lumbar / Sacral Performed by: Dalia Duron DO Authorized by: Osmani Carter MD us Osmani Carter MD IN CLINIC/BEDSIDE ORDER YA Final Result * POC Imaging (08/09/2024) Anatomical Region Laterality Modality Pelvis Other 08/09/2024 us External Provider IMG POINT OF CARE ULTRASOUND F inal Result * Hepatitis panel, acute (11/29/2021 3:30 PM EDT) Hepatitis B Surf Antigen Negative Negative 11/29/2021 8:57 PM EDT [facility] Hepatitis C Antibody Negative Negative 11/29/2021 8:57 PM EDT [facility] Hepatitis A Antibody IgM Negative Negative 11/29/2021 8:57 PM EDT [facility] Hepatitis B Core Antibody IgM Negative Negative 11/29/2021 8:57 PM EDT [facility] Blood Venous blood specimen / Unknown Venipuncture / Unknown 11/29/2021 3:30 PM EDT 11/29/2021 3:37 PM EDT us Vanesa Burrell MD LAB BLOOD ORDERABLES Final Res ult Performing Organization Address City/[facility] Co de Phone Number [facility] [address] [place] [address] * (ABNORMAL) Hemoglobin A1c (11/29/2021 3:30 PM EDT) Hemoglobin A1c 5.7(H) <5.7 % 11/29/2021 8:26 PM EDT [facility] Blood Venous blood specimen / Unknown Venipuncture / Unknown 11/29/2021 3:30 PM EDT 11/29/2021 3:37 PM EDT Narrative HEALTHCARE LAB - 11/29/2021 8:26 PM EDT HA1C Interpretive Data: Diagnosis of Diabetes: Diabetic > or = 6.5% Pre-diabetic 5.7 to 6.4% Non-diabetic < or = 5.6% Glycemic Targets for Type I and Type II Diabetics: Non- Adults <7.0% Adults <6.0% Children and Adolescents <7.5% Source: [place] [employer]. Standards of medical care in diabetes,2017. Diabetes Care.2017:40 (suppl 1):S1-S135. HbA1c assay performed by an ion-exchange chromatography method that is certified traceable to the DCCT. us Vanesa Burrell MD LAB BLOOD ORDERABLES Final Res ult [facility] [address] [place] [address] from Last 3 Months or Most Recently Relevant to Health Maintenance Insurance [place]ICA[place] Care Teams Commercial Airline Pilot Relationship Specialty Start Date End Date Melanie Tolliver APRN [address] [place] [phone] PCP - General 07/05/24
--- OUTSIDE RECORDS SUMMARY | 2024-08-26 13:31 | XMS_ITS | Encounter Summary ---
Author Organization Healthcare Address [address] [place] [address] Care Team Providers Care Pierce And Shave Press Operator Name Role Phone Melanie Tolliver APRN Primary Care Provider Encounter Details Date Type Department Care Team (Latest Contact Info) Description 08/09/2024 Travel Social History Tobacco Use Types Packs/Day [...] Description 09/17/2024 10:20 AM EDT Office Visit [facility] Interventional Pain Medicine [address] [facility] [place] [address] Osmani Carter MD [address] [facility] [address] [place] [address] documented as of this encounter Visit Diagnoses Not on filedocumented in this encounter Additional Health Concerns Assessment Noted Time A fall risk assessment has been complete d for the patient 08/09/2024 10:55 AM EDT A Body Mass Index follow-up plan has been documented for the patient 08/09/2024 11:34 AM EDT documented as of this encounter Care Teams Pierce And Shave Press Operator Relationship Specialty Start Date End Date Melanie Tolliver APRN [address] [place] [address] PCP - General 07/05/24 documented as of this encounter
--- NOTE | 2024-08-26 14:02 | XR_ITS ---
FINAL REPORT CLINICAL HISTORY: SPONDYLOSIS OF CERVICAL REGION, degenerative cartilage, neck pain for yrs, trouble holding head up COMPARISON: 04/11/2022 FINDINGS: Three views of the cervical spine were obtained. There is no fracture present. There is no malalignment. There is moderate anterior osteophyte formation at C5-6 and C6-7. Reversal of the cervical lordosis is noted. There is a sideplate and screws securing the mandible. IMPRESSION: Hypertrophic changes of degenerative disc disease without acute bony abnormality. Reviewed, Interpreted and Dictated by Thony Larose MD Transcribed by Abeba Fry Authenticated and [facility]
== END 2024-08-26 23:59 | disposition home or self-care (01) ==
LOC: RAD 13:29
PROVIDERS: PCP Family Medicine; Visit Provider Anesthesiology
DX: M47.22 Other spondylosis with radiculopathy, cervical region (principal)
CPT/HCPCS: 72040; 73610; 73630

== ENCOUNTER 2024-10-22 14:24 | Outpatient (CLI) | payer MEDICARE, MEDICAID, SELFPAY ==
--- OUTSIDE RECORDS SUMMARY | 2024-09-17 10:20 | XMS_ITS | Encounter Summary ---
Author Organization Healthcare Address [address] [place] [address] Care Team Providers Care Rubbish Collector Name Role Phone Melanie Tolliver APRN Primary Care Provider [phone] Reason for Referral * Other Medical (Routine) - Closed Specialty Diagnoses / Procedures Referred By Contac t Referred To Contact Pain Medicine Diagnoses Lumbar radiculopathy Procedures Transforaminal Epidural - Lumbar / Sacral Osmani Carter MD [address] [facility] [address] [place] [phone] Phone: tel: fax: Referral ID Status Reason Start Date Expiration Date Visits Re quested Visits Authorized [id number] Closed 09/17/2024 03/19/2026 1 1 Reason for Visit * Reason Comments Follow-up LESI follow up Encounter Details Date Type Department Care Team (Late st Contact Info) Description 09/17/2024 10:20 AM EDT Office Visit [facility] Interventional Pain Medicine [address] [place] [address] Osmani Carter MD [address] [phone] Lumbar radiculopathy (Primary Dx) Social History Tobacco Use Types Packs/Day Years [...] Sign Reading Time Taken Comments Blood Pressure 112/75 09/17/2024 9:59 AM EDT Pulse 83 09/17/2024 9:59 AM EDT Temperature 36.7 C (98 F) 09/17/2024 9:59 AM EDT Respiratory Rate 16 09/17/2024 9:59 AM EDT Oxygen Saturation - - Inhaled Oxygen Concentration - - Weight 88.5 kg (195 lb) 09/17/2024 9:59 AM EDT Height 172.7 cm (5' 8 ) 09/17/2024 9:59 AM EDT Body Mass Index 29.65 09/17/2024 9:59 AM EDT documented in this encounter Miscellaneous Notes * Progress Notes - Miri Duran APRN - 09/17/2024 10:20 AM EDT Images from the original note were not included. Interventional Pain Medicine Follow Up Note Subjective: Interval History: 09/17/2024 Tiffany presents today for follow up and re-evaluation of chronic low back pain status post L5/S1 LESI08/09/2024. Today she reports no relief in her pain follow the LESI and is still complaining of her most pressing problem being her left leg History of Present Illness: Tiffany Finn is a 54 y.o. female with PMHx of Bipolar Disorder, GERD . [facility] found for evaluation of neck pain. Presents with: Site: neck pain Onset: years, worsening Severity: 610 Descriptors: dull, aching, pop Aggravating Factors: axial flexion and extension, rotation Relieving Factors: unable to identify Associated Symptoms: denies recent fall Site: back pain Onset: years, worsening Severity: 610 Descriptors: sharp, burning, numbness Aggravating Factors: prolonged walking, standing, twisting Relieving Factors: rest Associated Symptoms: radiating LLE pain I the S1 distribution New Patient NDI: 30 Current Disabilities: limitations in ADLs/IADLs Functional Goals of Treatment: improvement in function Current Medication: Current Pain Medications divalproex (Depakote) [address] tablet DULoxetine (Cymbalta) [address] capsule Take 1 capsule (60 mg total) by mouth 2 (two) times a day. Do not crush or chew. ibuprofen 800 MG tablet Invega Sustenna 234 MG/1.5ML suspension prefilled syringe Inject one (1) application into the muscle every 4 weeks pregabalin (Lyrica) 150 MG capsule take 1 capsule(150 mg) orally daily QUEtiapine (SEROquel) 200 MG tablet traZODone (Desyrel) 100 MG tablet Take 2 tablets (200 mg total) by mouth every night. Previous Medication: Ibuprofen Gabapentin - no relief Previous Conservative Treatment: heat ice medication trials modified activities rest unable to complete HEP due to increased pain unable to complete physical therapy due to increased pain Previous Interventions/Consults: 08/09/2024: L5/S1 LESI -- no relief Other Medical History Work Status/Pain related to work injury: No reports that she has quit smoking. Her smoking use included cigarettes. She has never used smokeless tobacco. [...] on exposed skin Neurologic & Musculoskeletal Exam Lower Extremity Region Exam Left (+/-) Right [...] Left Right Comments L2: Hip flexion (iliopsoas) 5/5 5/5 L3: Knee extension (quad) 5/5 5/5 L4: Ankle DF (TA) 5/5 5/5 L5: Great Toe DF (EHL) 07/15 07/15 S1: Ankle PF, Foot Eversion (Peroneal longus/brevis) 07/15 07/15 S2: Great toe flexion (FHL), Knee Flexion 07/15 07/15 Imaging/Studies: Images of the following studies have been personally reviewed and my independent interpretation reveals as written: 07/01/24 L Spine MRI (read only) Labs: Lab Results Component Value Date PLT 386 (H) 12/08/2021 Lab Results Component Value Date INR 1.1 09/18/2018 Lab Results Component Value Date HGBA1C 5.7 (H) 11/29/2021 Assessment & Plan: Tiffany Finn is a 54 y.o. female #Lumbar Radicular Syndrome, Chronic Worsening -Symptoms in the Left L5 and S1 dermatome -s/p L5-S1 interlaminar epidural steroid injection 08/09/2024 without any relief - she continues to complain of left S1 radiculopathy which correlates to her MRI thus recommended left S1 transforaminal epidural steroid injection as a diagnostic and therapeutic injection. - discussed pending relief may consider spine surgery evaluation for decompression -Follow up 2-4 weeks post-procedure #Axial Neck Pain, Chronic Worsening #Cervical Spondylosis #Facetogenic pain -Can consider trial a Bilateral Cervical mbb first diagnostic block performed with fluoroscopy -If successful, will confirm with second diagnostic block then proceed to RFA performed with fluoroscopy Cosigned by Osmani Carter MD at 09/17/2024 10:18 AM EDT Associated attestation - Osmani Carter MD - 09/17/2024 10:18 AM EDT I attest to being involved in more than half the total time in patient care. documented in this encounter Plan of Treatment Upcoming Encounters Date Type Department Care Team (Late st Contact Info) Description 11/12/2024 9:40 AM EDT Office Visit [facility] Interventional Pain Medicine [address] [place] [phone] Osmani Carter MD [address] [facility] [address] [place] [address] documented as of this encounter Results * Transforaminal Epidural - Lumbar / Sacral (10/18/2024 11:30 AM EDT) Narrative Osmani Carter MD - 10/18/2024 11:30 AM EDT Osmani Carter MD 10/18/2024 1:18 PM Transforaminal Epidural - Lumbar / Sacral Performed by: Dhaval Sage DO Authorized by: Osmani Carter MD Osmani Carter MD IN CLINIC/BEDSIDE ORDER YA Final Result documented in this encounter Visit Diagnoses Diagnosis Lumbar radiculopathy- Primary Thoracic or lumbosacral neuritis or radiculitis, unspecified Lumbar radiculopathy Thoracic or lumbosacral neuritis or radiculitis, unspecified documented in this encounter Additional Health Concerns Assessment Noted Time A fall risk assessment has been complete d for the patient 09/17/2024 10:01 AM EDT A Body Mass Index follow-up plan has been documented for the patient 09/17/2024 10:18 AM EDT documented as of this encounter Care Teams Rubbish Collector Relationship Specialty Start Date End Date Melanie Tolliver APRN [address] [place] [address] PCP - General 07/05/24 documented as of this encounter
--- OUTSIDE RECORDS SUMMARY | 2024-10-18 11:30 | XMS_ITS | Encounter Summary ---
Author Organization Healthcare Address [address] [place] [address] Care Team Providers Care Professor Of Latin American Studies Name Role Phone Melanie Tolliver APRN Primary Care Provider [phone] Reason for Visit * Reason Comments Injections * Other Medical (Routine) - Closed Specialty Diagnoses / Procedures Referred By Oziel t Referred To Contact Pain Medicine Diagnoses Lumbar radiculopathy Procedures Transforaminal Epidural - Lumbar / Sacral Osmani Carter MD [address] [phone] Phone: tel: fax: Referral ID Status Reason Start Date Expiration Date Visits Re quested Visits Authorized [id number] Closed 09/17/2024 03/19/2026 1 1 Encounter Details Date Type Department Care Team (Late st Contact Info) Description 10/18/2024 11:30 AM EDT Procedure Visit [facility] Interventional Pain Medicine [address] [place] [address] Osmani Carter MD [address] [phone] Lumbar radiculopathy Social History Tobacco Use Types Packs/Day [...] Sign Reading Time Taken Comments Blood Pressure 125/84 10/18/2024 11:46 AM EDT Pulse 78 10/18/2024 11:46 AM EDT Temperature 35.9 C (96.6 F) 10/18/2024 11:14 AM EDT Respiratory Rate 18 10/18/2024 11:46 AM EDT Oxygen Saturation 95% 10/18/2024 11:46 AM EDT Inhaled Oxygen Concentration - - Weight 88.5 kg (195 lb 1.7 oz) 10/18/2024 11:14 AM EDT Height 172.7 cm (5' 8 ) 10/18/2024 11:14 AM EDT Body Mass Index 29.67 10/18/2024 11:14 AM EDT documented in this encounter Miscellaneous Notes * Clinician Note - Daylin Goetz RN - 10/18/2024 11:30 AM EDTAssociated Order(s): Interventional Pain Nurse Procedure Protocol Interventional Pain Nurse Procedure Protocol Documentation: Indications: Documentation supporting primary procedure completed by : Osmani Carter MD See the provider procedure note for performed procedure details and findings. Pre-Procedure Checklist: Currently taking anticoagulant(s)?: no Short Order Cook present?: yes (uber) Additional Pre-Procedure Comments: Left S1 TFESI A timeout was called immediately prior to the procedure, in accordance with [employer] policy @ 1142 Procedure details: Procedure start time:: 10/18/2024 11:44 AM Procedure end time:: 10/18/2024 11:45 AM Guidance used (if applicable): fluoro Total amount of contrast dye (mGy): 2.08 Fluoro time: 11 seconds Moderate conscious sedation used?: no Post-procedure details: Orientation at discharge?: Normal to time, normal to place, normal to person, normal to situation and completely oriented Mood and Affect normal?: yes Discharged to: home Mode of exit: Walked (to river driver in hallway @11:55 AM) Attendance: Constant attendance by certified staff until patient recovered Recovery: Patient returned to pre-procedure baseline Estimated blood loss (see I/O flowsheets): no Specimens recovered: None Patient is stable for discharge or admission: yes Procedure completion: Tolerated well, no immediate complications * Progress Notes - Dhaval Sage DO - 10/18/2024 11:30 AM EDTAssociated Order(s): Transforaminal Epidural - Lumbar / Sacral Pre-Procedure Diagnose(s): Lumbar radiculopathy Post-Procedure Diagnose(s): Lumbar radiculopathy Patient ID: Tiffany Finn is a 54 y.o. female. Encounter Diagnosis Name Primary? Lumbar radiculopathy Transforaminal Epidural - Lumbar / Sacral Performed by: Dhaval Sage DO Authorized by: Osmani Carter MD Patient seen and evaluated prior to their procedure.There is nothing in the patient's overall condition that would affect the planned course of the patient's treatment today that requires additional interventions to reduce risk to the patient. Procedure(s): Left S1 transforaminal epidural steroid injection Anesthesia Type: local only Complications: none Follow-up Plan: Clinic follow up as scheduled Procedure: This patient was seen earlier for a comprehensive evaluation of their painful condition.After discussing treatment options, the patient elected to proceed with a transforaminal epidural steroid injection. Written, informed consent was obtained before the start of the procedure. The patient's history of present illness, past medical history (including current medications and allergies), and physical examination were reviewed with the patient immediately before the procedure, and it was confirmed directly with the patient that [...] skin prep followed by sterile drape. The needle insertion for the transforaminal epidural steroid injection as indicated above was identified by fluoroscopy and marked. The overlying skin was anesthetized with 1% lidocaine. Under fluoroscopic guidance, using a coaxial approach, a 22 gauge 3.5 inch needle was advanced until the needle tip was in the superior posterior quadrant of the intervertebral foramen. Appropriate positioning ofthe needle tip was confirmed by fluoroscopy in the lateral view. After negative aspiration, under live fluoroscopy in the anterior-posterior view, 0.5 mL of contrast solution was injected. This demonstrated epidural spread without any evidence of intrathecal or intravascular flow. At each site as mentioned above, after confirming appropriate placement of the needle and proper spread of the contrast solution, 10 mg of Dexamethasone was injected with 1 mL of Bupivacaine 0.25%. The stylette was replaced and the needle was removed. Sterile bandage was applied over the puncture site. Following completion of the procedure, the patient was transported to the PACU, then was later discharged in stable condition. Cosigned by Osmani Carter MD at 10/18/2024 1:18 PM EDT Associated attestation - Osmani Carter MD - 10/18/2024 1:18 PM EDT I was present for the entirety of the procedure(s). documented in this encounter Plan of Treatment Upcoming Encounters Date Type Department Care Team (Late st Contact Info) Description 11/12/2024 9:40 AM EDT Office Visit [facility] Interventional Pain Medicine [address] [facility] [place] [phone] Osmani Carter MD [address] [facility] [address] [place] [phone] documented as of this encounter Procedures Procedure Name Priority Date/Time Associated Diagnosis Comments IVP NURSE PROCEDURE PROTOCOL Routine 10/18/2024 11:30 AM EDT PBPROC Routine 10/18/2024 11:30 AM EDT Lumbar radiculopathy documented in this encounter Results * Interventional Pain Nurse Procedure Protocol (10/18/2024 11:30 AM EDT) Narrative Johanna Kothari RN - 10/18/2024 11:30 AM EDT Johanna Kothari RN 10/18/2024 1:18 PM Interventional Pain Nurse Procedure Protocol Documentation: Indications: Documentation supporting primary procedure completed by : Osmani Carter MD See the provider procedure note for performed procedure details and findings. Pre-Procedure Checklist: Currently taking anticoagulant(s)?: no Short Order Cook present?: yes (uber) Additional Pre-Procedure Comments: Left S1 TFESI A timeout was called immediately prior to the procedure, in accordance with [employer] policy @ 1142 Procedure details: Procedure start time:: 10/18/2024 11:44 AM Procedure end time:: 10/18/2024 11:45 AM Guidance used (if applicable): fluoro Total amount of contrast dye (mGy): 2.08 Fluoro time: 11 seconds Moderate conscious sedation used?: no Post-procedure details: Orientation at discharge?: Normal to time, normal to place, normal to person, normal to situation and completely oriented Mood and Affect normal?: yes Discharged to: home Mode of exit: Walked (to river driver in hallway @11:55 AM) Attendance: Constant attendance by certified staff until patient recovered Recovery: Patient returned to pre-procedure baseline Estimated blood loss (see I/O flowsheets): no Specimens recovered: None Patient is stable for discharge or admission: yes Procedure completion: Tolerated well, no immediate complications us Osmani Carter MD IN CLINIC/BEDSIDE ORDER YA Final Result * Transforaminal Epidural - Lumbar / Sacral (10/18/2024 11:30 AM EDT) Narrative Osmani Carter MD - 10/18/2024 11:30 AM EDT Osmani Carter MD 10/18/2024 1:18 PM Transforaminal Epidural - Lumbar / Sacral Performed by: Dhaval Sage DO Authorized by: Osmani Carter MD us Osmani Carter MD IN CLINIC/BEDSIDE ORDER YA Final Result documented in this encounter Visit Diagnoses Diagnosis Lumbar radiculopathy Thoracic or lumbosacral neuritis or radiculitis, unspecified documented in this encounter Administered Medications Inactive Administered Medications - up to 3 most recent administrations Medication Order MAR Action Action Date Dose Rate Site bupivacaine PF (Marcaine) 0.25 % injection 25 mg 25 mg (10 mL), Injection, Once, 1 dose, On Mon10/18/24 at 1230, RoutineIndications:Lumbar radiculopathy Given by Other 10/18/2024 11:43 AM EDT 25 mg dexamethasone (PF) (Decadron) injection 10 mg 10 mg, Injection, Once, 1 dose, On Mon10/18/24 at 1230, RoutineIndications:Lumbar radiculopathy Given by Other 10/18/2024 11:44 AM EDT 10 mg iohexol (OMNIPaque) 300 MG/ML injection 10 mL 10 mL, Other, Once in imaging, 1 dose, Starting on Mon10/18/24 at 1143, Until Mon10/18/24 at 1143, RoutineIndications:Lumbar radiculopathy Given by Other 10/18/2024 11:43 AM EDT 10 mL lidocaine PF (Xylocaine) 1 % injection 300 mg 300 mg (30 mL), Injection, Once, 1 dose, On Mon10/18/24 at 1230, RoutineIndications:Lumbar radiculopathy Given by Other 10/18/2024 11:43 AM EDT 300 mg documented in this encounter Additional Health Concerns Assessment Noted Time A fall risk assessment has been complete d for the patient 10/18/2024 11:13 AM EDT A Body Mass Index follow-up plan has been documented for the patient 10/18/2024 1:18 PM EDT documented as of this encounter Care Teams Professor Of Latin American Studies Relationship Specialty Start Date End Date Melanie Tolliver APRN [address] [place] [address] PCP - General 07/05/24 documented as of this encounter
--- OUTSIDE RECORDS SUMMARY | 2024-10-22 14:26 | XMS_ITS | Encounter Summary ---
Author Organization Healthcare Address [address] [place] [address] Care Team Providers Care Sharepoint Engineer Name Role Phone DebEmmett Bridger [place] Primary Care Provider Melanie Tolliver APRN Primary Care Provider [phone] Encounter Details Date Type Department Care Team (Late st Contact Info) Description 11/29/2021 Lab Requisition [facility] [address] [place] [address] Vanesa Burrell MD [address] [place] [phone] Routine general medical examination at a [...] Description 11/12/2024 9:40 AM EDT Office Visit [facility] Interventional Pain Medicine [address] [place] [address] Osmani Carter MD [address] [facility] [address] [place] [address] documented as of this encounter [...] - 4.20 uIU/mL 11/29/2021 8:26 PM EDT [facility] Blood Venous blood specimen / Unknown Venipuncture / Unknown 11/29/2021 3:30 PM EDT 11/29/2021 3:37 PM EDT Narrative [facility] - 11/29/2021 8:26 PM EDT Trimester Specific Ranges TSH ( IU/mL) 1st Trimester 0.1 - 3.0 2nd Trimester 0.19 - 4.06 3rd Trimester 0.3 - 3.7 us Vanesa Burrell MD LAB BLOOD ORDERABLES Final Res ult [facility] [address] [place] [address] * (ABNORMAL) CBC and Differential (11/29/2021 3:30 PM EDT) WBC Count 10.87(H) 3.70 - 10.30 10*3/uL LAB HEMATOLOGY METHOD 11/29/2021 8:08 PM EDT [facility] RBC Count 4.98 3.90 - 5.20 10*6/uL LAB HEMATOLOGY METHOD 11/29/2021 8:08 PM EDT [facility] HGB 13.2 11.2 - 15.7 g/dL LAB HEMATOLOGY METHOD 11/29/2021 8:08 PM EDT [facility] HCT 40.9 34.0 - 45.0 % LAB HEMATOLOGY METHOD 11/29/2021 8:08 PM EDT [facility] Platelet Count 430(H) 155 - 369 10*3/uL LAB HEMATOLOGY METHOD 11/29/2021 8:08 PM EDT [facility] MCV 82 79 - 98 fL LAB HEMATOLOGY METHOD 11/29/2021 8:08 PM EDT [facility] MCH 26.5 26.0 - 32.0 pg LAB HEMATOLOGY METHOD 11/29/2021 8:08 PM EDT [facility] MCHC 32.3 30.7 - 35.5 g/dL LAB HEMATOLOGY METHOD 11/29/2021 8:08 PM EDT [facility] RDW 14.7(H) 11.5 - 14.5 % LAB HEMATOLOGY METHOD 11/29/2021 8:08 PM EDT [facility] MPV 11.0 8.8 - 12.5 fL LAB HEMATOLOGY METHOD 11/29/2021 8:08 PM EDT [facility] nRBC 0.0 <=0.0 per 100 WBCs LAB HEMATOLOGY METHOD 11/29/2021 8:08 PM EDT [facility] Differential Type Automated LAB HEMATOLOGY METHOD 11/29/2021 8:08 PM EDT [facility] Neutrophils % 63.0 % LAB HEMATOLOGY METHOD 11/29/2021 8:08 PM EDT [facility] Lymphocytes % 31.0 % LAB HEMATOLOGY METHOD 11/29/2021 8:08 PM EDT [facility] Monocytes % 6.0 % LAB HEMATOLOGY METHOD 11/29/2021 8:08 PM EDT [facility] Eosinophils % 0.0 % LAB HEMATOLOGY METHOD 11/29/2021 8:08 PM EDT [facility] Basophils % 0.0 % LAB HEMATOLOGY METHOD 11/29/2021 8:08 PM EDT [facility] Immature Granulocytes % 0.0 % LAB HEMATOLOGY METHOD 11/29/2021 8:08 PM EDT [facility] Neutrophils Absolute 6.75(H) 1.60 - [...] ORDERABLES Final Res ult [facility] [address] [place], [place] [id number] * (ABNORMAL) Hemoglobin A1c (11/29/2021 3:30 PM [...] Adults <6.0% Children and Adolescents <7.5% Source: [place] [employer]. Standards of medical care in diabetes,2017. Diabetes Care.2017:40 (suppl 1):S1-S135. HbA1c assay performed by an ion-exchange chromatography method that is certified traceable to the DCCT. us Vanesa Burrell MD LAB BLOOD ORDERABLES Final Res [facility] [address] [place] [address] * Lipid panel (11/29/2021 3:30 PM EDT) [...] MD LAB BLOOD ORDERABLES Final Res ult [facility] [address] [place] [address] * (ABNORMAL) Comprehensive metabolic panel (11/29/2021 3:30 PM EDT) Pathologist [facility] Glucose, Plasma 107(H) 74 - 99 mg/dL 11/29/2021 8:26 PM EDT [facility] BUN, Plasma 33(H) 7 - 21 mg/dL 11/29/2021 8:26 PM EDT [facility] Creatinine, Plasma 2.06(H) 0.60 - 1.10 mg/dL 11/29/2021 8:26 PM EDT [facility] BUN/Creatinine Ratio 16 11/29/2021 8:26 PM EDT [facility] Sodium, Plasma 136 136 - 145 mmol/L 11/29/2021 8:26 PM EDT [facility] Potassium, Plasma 3.1(L) 3.7 - 4.8 mmol/L 11/29/2021 8:26 PM EDT [facility] Comment:Reference range for Serum potassium is 0.2 to 0.5 mmol/L higher than Plasma range. Chloride, Plasma 92(L) 97 - 107 mmol/L 11/29/2021 8:26 PM EDT [facility] CO2, Plasma 27 22 - 29 mmol/L 11/29/2021 8:26 PM EDT [facility] Anion Gap 17(H) 6 - 16 mmol/L 11/29/2021 8:26 PM EDT [facility] Total Calcium, Plasma 9.8 8.9 - 10.2 mg/dL 11/29/2021 8:26 PM EDT [facility] Total Protein 7.5 6.3 - 7.9 g/dL 11/29/2021 8:26 PM EDT [facility] Albumin, Plasma 4.8 3.5 - 5.2 g/dL 11/29/2021 8:26 PM EDT [facility] AST, Plasma 102(H) 11 - 32 U/L 11/29/2021 8:26 PM EDT [facility] ALT, Plasma 40(H) 8 - 33 U/L 11/29/2021 8:26 PM EDT [facility] Alkaline Phosphatase, Plasma 85 35 - 104 U/L 11/29/2021 8:26 PM EDT [facility] Total Bilirubin, Plasma 1.1 0.2 - 1.1 mg/dL 11/29/2021 8:26 PM EDT [facility] eGFRcr 28.4 mL/min/1.7 3m*2 11/29/2021 8:26 PM EDT [facility] Comment: Reported eGFRcr in mL/min/1.73m2 is based the CKD-EPI 202 equation that does not use a race coefficient. Effective 10/06/21 our laboratory changed the eGFR calculation to the CKD-EPI 2021 equation from the previously reported eGFR, based on the MDRD equation. For comparisons between the two equations, please see laboratory website: [email or web address] Blood Venous blood specimen / Unknown Venipuncture / Unknown 11/29/2021 3:30 PM EDT 11/29/2021 3:37 PM EDT us Vanesa Burrell MD LAB BLOOD ORDERABLES Final Res ult [facility] [address] [place] [address] * Hepatitis panel, acute (11/29/2021 3:30 PM EDT) Hepatitis B Surf Antigen Negative Negative 11/29/2021 8:57 PM EDT [facility] Hepatitis C Antibody Negative Negative 11/29/2021 8:57 PM EDT [facility] Hepatitis A Antibody IgM Negative Negative 11/29/2021 8:57 PM EDT [facility] Hepatitis B Core Antibody IgM Negative Negative 11/29/2021 8:57 PM EDT [facility] Blood Venous blood specimen / Unknown Venipuncture / Unknown 11/29/2021 3:30 PM EDT 11/29/2021 3:37 PM EDT us Vanesa Burrell MD LAB BLOOD ORDERABLES Final Res [facility] [address] [place] [address] documented in this encounter Visit Diagnoses Diagnosis Routine general medical examination at a health care facility documented in this encounter Care Teams Sharepoint Engineer Relationship Specialty Start Date End Date Emmett Boyd DO [address] [place] [address] PCP - General 07/24/20 07/04/24 Melanie Tolliver APRN [address] [place] [address] PCP - General 07/05/24 documented as of this encounter
--- OUTSIDE RECORDS SUMMARY | 2024-10-22 14:26 | XMS_ITS | Encounter Summary ---
Author Organization Healthcare Address [address] [place] [address] Care Team Providers Care It Security Consultant Name Role Phone Melanie Tolliver APRN Primary Care Provider Encounter Details Date Type Department Care Team (Late Contact Info) Description 10/18/2024 Orders Only External Location [address] [place] [address] Provider, External Social History Tobacco Use Types [...] Description 11/12/2024 9:40 AM EDT Office Visit [facility] Interventional Pain Medicine [address] [facility] [place] [phone] Osmani Carter MD [address] [facility] [address] [place] [phone] documented as of this encounter Procedures Procedure Name Priority Date/Time Associated Diagnosis Comments POC ULTRASOUND 10/18/2024 documented in this encounter Results * POC Imaging (10/18/2024) Anatomical Region Laterality Modality Pelvis Other 10/18/2024 us External Provider IMG POINT OF CARE [...] documented as of this encounter Care Teams It Security Consultant Relationship Specialty Start Date End Date Melanie Tolliver APRN [address] [place] [address] PCP - General 07/05/24 documented as of this encounter
--- OUTSIDE RECORDS SUMMARY | 2024-10-22 14:26 | XMS_ITS | Encounter Summary ---
Author Organization Healthcare Address [address] [place] [address] Care Team Providers Care Power Reactor Operator Name Role Phone Emmett Boyd DO Primary Care Provider Melanie Tollvier APRN Primary Care Provider [phone] Encounter Details Date Type Department Care Team (Late st Contact Info) Description 12/08/2021 Lab Requisition [facility] [address] [place] [phone] Em Young APRN [address] [place] [phone] Routine general medical examination at a health [...] 9:40 AM EDT Office Visit [facility] Interventional Pain Medicine [address] [facility] [place] [address] Osmani Carter MD [address] [facility] [address] [place] [address] documented as of this encounter [...] - 0.3 mg/dL 12/08/2021 10:17 AM EDT [facility] Blood Venous blood specimen / Unknown Venipuncture / Unknown 12/08/2021 7:20 AM EDT 12/08/2021 8:13 AM EDT Em Young GRAPHITE PAN DRIER TENDER LAB BLOOD ORDERABLES Dulce l Result Performing Organization Address City/[facility] de Phone Number [facility] [address] [place] [address] * Vitamin D 25 Hydroxy (12/08/2021 7:20 [...] 7:20 AM EDT 12/08/2021 8:15 AM EDT Rocket Raisemoncho Young GRAPHITE PAN DRIER TENDER LAB BLOOD ORDERABLES Dulce l Result [facility] [address] [place] [address] * (ABNORMAL) CBC and Differential (12/08/2021 7:20 AM EDT) WBC Count 8.18 3.70 - 10.30 10*3/uL LAB HEMATOLOGY METHOD 12/08/2021 10:33 AM EDT [facility] RBC Count 4.16 3.90 - 5.20 10*6/uL LAB HEMATOLOGY METHOD 12/08/2021 10:33 AM EDT [facility] HGB 11.3 11.2 - 15.7 g/dL LAB HEMATOLOGY METHOD 12/08/2021 10:33 AM EDT [facility] HCT 35.5 34.0 - 45.0 % LAB HEMATOLOGY METHOD 12/08/2021 10:33 AM EDT [facility] Platelet Count 386(H) 155 - 369 10*3/uL LAB HEMATOLOGY METHOD 12/08/2021 10:33 AM EDT [facility] MCV 85 79 - 98 fL LAB HEMATOLOGY METHOD 12/08/2021 10:33 AM EDT [facility] MCH 27.2 26.0 - 32.0 pg LAB HEMATOLOGY METHOD 12/08/2021 10:33 AM EDT [facility] MCHC 31.8 30.7 - 35.5 g/dL LAB HEMATOLOGY METHOD 12/08/2021 10:33 AM EDT [facility] RDW 14.9(H) 11.5 - 14.5 % LAB HEMATOLOGY METHOD 12/08/2021 10:33 AM EDT [facility] MPV 11.3 8.8 - 12.5 fL LAB HEMATOLOGY METHOD 12/08/2021 10:33 AM EDT [facility] nRBC 0.0 <=0.0 per 100 WBCs LAB HEMATOLOGY METHOD 12/08/2021 10:33 AM EDT [facility] Differential Type Automated LAB HEMATOLOGY METHOD 12/08/2021 10:33 AM EDT [facility] Neutrophils % 65.0 % LAB HEMATOLOGY [...] LAB HEMATOLOGY METHOD 12/08/2021 10:33 AM EDT [facility] Neutrophils Absolute 5.31 1.60 - 6.10 10*3/uL LAB HEMATOLOGY METHOD 12/08/2021 10:33 AM EDT [facility] Lymphocytes Absolute 2.27 1.20 - 3.90 10*3/uL LAB HEMATOLOGY METHOD 12/08/2021 10:33 AM EDT [facility] Monocytes Absolute 0.45 0.30 - 0.90 10*3/uL LAB HEMATOLOGY METHOD 12/08/2021 10:33 AM EDT [facility] Eosinophils Absolute 0.11 0.00 - 0.50 10*3/uL LAB HEMATOLOGY METHOD 12/08/2021 10:33 AM EDT [facility] Basophils Absolute 0.02 0.00 - 0.10 10*3/uL LAB HEMATOLOGY METHOD 12/08/2021 10:33 AM EDT [facility] Immature Granulocytes Absolute 0.02 0.00 - [...] Dulce l Result [facility] [address] [place] [address] * (ABNORMAL) Comprehensive metabolic panel (12/08/2021 7:20 AM EDT) Glucose, Plasma 103(H) 74 - 99 mg/dL 12/08/2021 10:17 AM EDT [facility] BUN, Plasma 11 7 - 21 mg/dL 12/08/2021 10:17 AM EDT [facility] Creatinine, Plasma 0.68 0.60 - 1.10 mg/dL 12/08/2021 10:17 AM EDT [facility] BUN/Creatinine Ratio 16 12/08/2021 10:17 AM EDT [facility] Sodium, Plasma 137 136 - 145 mmol/L 12/08/2021 10:17 AM EDT [facility] Potassium, Plasma 4.8 3.7 - 4.8 mmol/L 12/08/2021 10:17 AM EDT [facility] Comment:Reference range for Serum potassium is 0.2 to 0.5 mmol/L higher than Plasma range. Chloride, Plasma 100 97 - 107 mmol/L 12/08/2021 10:17 AM EDT [facility] CO2, Plasma 26 22 - 29 mmol/L 12/08/2021 10:17 AM EDT [facility] Anion Gap 11 6 - 16 mmol/L 12/08/2021 10:17 AM EDT [facility] Total Calcium, Plasma 9.4 8.9 - 10.2 mg/dL 12/08/2021 10:17 AM [facility] Total Protein 7.0 6.3 - 7.9 g/dL 12/08/2021 10:17 AM [facility] Albumin, Plasma 4.3 3.5 - 5.2 g/dL 12/08/2021 10:17 AM EDT [facility] AST, Plasma 24 11 - 32 U/L 12/08/2021 10:17 AM [facility] ALT, Plasma 23 8 - 33 U/L 12/08/2021 10:17 AM [facility] Alkaline Phosphatase, Plasma 67 35 - 104 U/L 12/08/2021 10:17 AM [facility] Total Bilirubin, Plasma 0.3 0.2 - 1.1 mg/dL 12/08/2021 10:17 AM EDT [facility] eGFRcr 104.3 mL/min/1.7 3m*2 12/08/2021 10:17 AM [facility] Comment: Reported eGFRcr in mL/min/1.73m2 is based the CKD-EPI 2021 equation that does not use a race coefficient. Effective 10/06/21 our laboratory changed the eGFR calculation to the CKD-EPI 2021 equation from the previously reported eGFR, based on the MDRD equation. For comparisons between the two equations, please see laboratory website: [email or web address] Blood Venous blood specimen / Unknown Venipuncture / Unknown 12/08/2021 7:20 AM EDT 12/08/2021 8:13 AM EDT us Em Young APRN LAB BLOOD ORDERABLES Dulce wiley Result Performing Organization Address City/State/[facility] Co id Phone Number [facility] [address] [place] [id number] documented in this encounter Visit Diagnoses Diagnosis Routine general medical examination at a health care facility documented in this encounter Care Teams Power Reactor Operator Relationship Specialty Start Date End Date Emmett Boyd DO [address] [place] [address] PCP - General 07/24/20 07/04/24 Melanie Tolliver APRN [address] [place] [address] PCP - General 07/05/24 documented as of this encounter
--- OUTSIDE RECORDS SUMMARY | 2024-10-22 14:26 | XMS_ITS | Encounter Summary ---
Author Organization Healthcare Address [address] [place] [address] Care Team Providers Care Computer Forensics Investigator Name Role Phone Melanie Tolliver APRN Primary Care Provider Encounter Details Date Type Department Care Team (Latest Contact Info) Description 09/17/2024 Travel Social History Tobacco Use Types Packs/Day [...] Description 11/12/2024 9:40 AM EDT Office Visit [facility] Interventional Pain Medicine [address] [facility] [place] [address] Osmani Carter MD [address] [facility] [address] [place] [address] documented as of this encounter Visit Diagnoses Not on filedocumented in this encounter Additional Health Concerns Assessment Noted Time A fall risk assessment has been complete d for the patient 09/17/2024 10:01 AM EDT A Body Mass Index follow-up plan has been documented for the patient 09/17/2024 10:18 AM EDT documented as of this encounter Care Teams Computer Forensics Investigator Relationship Specialty Start Date End Date Melanie Tolliver APRN [address] [place] [address] PCP - General 07/05/24 documented as of this encounter
--- OUTSIDE RECORDS SUMMARY | 2024-10-22 14:26 | XMS_ITS | Encounter Summary ---
Author Organization Healthcare Address [address] [place] [address] Care Team Providers Care Public School Teacher Name Role Phone Melanie Tolliver APRN Primary Care Provider Encounter Details Date Type Department Care Team (Latest Contact Info) Description 10/18/2024 Travel Social History Tobacco Use Types Packs/Day [...] [facility] [address] [facility] [place] [address] Osmani Carter MD [address] [facility] [address] [place] [address] documented as of this encounter Visit Diagnoses Not on filedocumented in this encounter Additional Health Concerns Assessment Noted Time A fall risk assessment has been complete d for the patient 10/18/2024 11:13 AM EDT A Body Mass Index follow-up plan has been documented for the patient 10/18/2024 1:18 PM EDT documented as of this encounter Care Teams Public School Teacher Relationship Specialty Start Date End Date Melanie Tolliver APRN [address] [place] [address] PCP - General 07/05/24 documented as of this encounter
--- OUTSIDE RECORDS SUMMARY | 2024-10-22 14:26 | XMS_ITS | Clinical Summary ---
Author Organization [facility] Address [address] [place] [address] Care Team Providers Care Residential Sales Rep Name Role Phone Provider, No Known Primary Care Provider Unavail able Allergies No known active allergies Medications * This document contains information received from the source organization and may not represent a complete record from that organization. cyclobenzaprine (FLEXERIL) 10 MG tablet Take 1 tablet by mouth 3 (Three) Times a Day As Needed for Muscle Spasms for up to 15 doses. 15 tablet 01/01/2022 Active divalproex (DEPAKOTE) [address] tabletIndicatio ns:Schizoaffect karina disorder, mixed type Take 1 tablet by mouth 2 (Two) Times a Day. 60 tablet 3 05/24/2023 Active DULoxetine (Cymbalta) 60 MG capsuleIndicati ons:Generalized anxiety disorder Take 1 capsule by mouth 2 (Two) Times a Day. 60 capsule 3 05/24/2023 Active hydrOXYzine pamoate (VISTARIL) 50 MG capsuleIndicati ons:Generalized anxiety disorder Take 1 capsule by mouth 3 (Three) Times a Day As Needed for Anxiety. 90 capsule 3 05/24/2023 Active QUEtiapine (SEROquel) 200 MG tabletIndicatio ns:Schizoaffect karina disorder, mixed type Take 1 tablet by mouth Every Night. 30 tablet 3 05/24/2023 Active Social History Tobacco Use Types Packs/Day Years Used Date Smoking Tobacco: Never Assessed Abuse Screen Answer Date Recorded Unsafe at Home or Work/School Not on file Feels Threatened by Someone? Not on file 12/2022 Does Anyone Keep You from Co ntacting Others or Doint Things Outside the Home? Not on file 01/20/2023 Physical Sign of Abuse Present Not on file 1 03/22/2022 Housing Stability Answer Date Recorded Current Living Arrangements Not on file 11/2022 Potentially Unsafe Housing Conditions Not on galindo e 12/19/2022 Family and Community Support Answer Shai e Recorded Help with Day-to-Day Activities Not on file 12/19/2022 Lonely or Isolated Not on file 12/19/2022 Employment Answer Date Recorded Do you want help finding or keeping work or a isaiah b? Not on file 12/19/2022 Disabilities Answer Date Recorded Concentrating, Remembering, or Making Decisions Difficulty Not on file 12/19/2022 Doing Errands Independently Difficulty Not on fi le 12/19/2022 Education Answer Date Recorded Help with school or training? Not on file Preferred Language Not on file 12/19/2022 PHQ-2 Answer Date Recorded Retired PHQ-9: Brief Depression Severity Measure Score 17 05/19/2023 Comments No Sex and Gender Information Value Date Recorded Sex Assigned at Not on file Legal Sex Female 10:18 AM EDT Gender Identity Not on file Sexual Orientation Not on file Last Filed Vital Signs Vital Sign Reading Time Taken Comments Blood Pressure 130/84 01/03/2022 4:04 PM EDT Pulse 98 01/03/2022 4:04 PM EDT Temperature 36.6 C (97.9 F) 01/03/2022 4:04 PM EDT Respiratory Rate 18 01/03/2022 4:04 PM EDT Oxygen Saturation 99% 01/03/2022 4:04 PM EDT Inhaled Oxygen Concentration - - Weight 68 kg (150 lb) 01/03/2022 4:04 PM EDT Height 172.7 cm (5' 8 ) 01/03/2022 4:04 PM EDT Body Mass Index 22.81 01/03/2022 4:04 PM EDT Plan of Treatment Health Maintenance Due Date Last Done Comments Annual Gynecologic Pelvic and Breast Exam 1968 TDAP/TD VACCINES (1 - Tdap) 01/28/1987 MAMMOGRAM 2008 COLOGUARD 01/28/2013 COLON CANCER SCREENING 5 YEA R SIGMOIDOSCOPY 01/28/2013 COLONOSCOPY 01/28/2013 COLORECTAL CANCER SCREENING 01/28/2013 CT COLONOGRAPHY 01/28/2013 FECAL OCCULT BLOOD TEST 01/28/2013 FIT Testing (1 year) 01/28/2013 ZOSTER VACCINE (1 of 2) 01/28/2018 Pneumococcal Vaccine 50+ (2 of 2 - PCV) 01/14/2023 1 03/16/2021, 03/21/2016 ANNUAL PHYSICAL 04/26/2023 HEPATITIS C SCREENING 04/26/2023 COVID-19 Vaccine (2 - season) 11/12/202310/2020 INFLUENZA VACCINE 12/11/2024 01/14/2022, 02/10/2010 Insurance [employer] MEDICARE ADVANTAGE O NON PAR Care Teams Residential Sales Rep Relationship Specialty Start Date End Date Provider, No Known [facility] [place] [address] PCP - General 01/01/22
--- OUTSIDE RECORDS SUMMARY | 2024-10-22 14:27 | XMS_ITS | Encounter Summary ---
Author Organization Healthcare Address [address] [place] [address] Care Team Providers Care Seed Buyer Name Role Phone DebEmmett sanchez Primary Care Provider [phone] Melanie Tolliver APRN Primary Care Provider [phone] Encounter Details Date Type Department Care Team (Late st Contact Info) Description 11/28/2021 Lab Requisition [facility] [address] [place] [address] Vanesa Burrell MD [address] [place] [address] Encounter for screening for COVID-19 Social [...] Description 11/12/2024 9:40 AM EDT Office Visit [facility] Interventional Pain Medicine [address] [facility] [place] [address] Osmani Carter MD [address] [facility] [address] [place] [address] documented as of this encounter [...] ORD ERABLES Final Result [facility] [address] [place] [address] documented in this encounter Visit Diagnoses Diagnosis Encounter for screening for COVID-19 documented in this encounter Care Teams Seed Buyer Relationship Specialty Start Date End Date Emmett Boyd DO [address] [place] [id number] PCP - General 07/24/20 07/04/24 Melanie Tolliver APRN [address] [place] [id number] PCP - General 07/05/24 documented as of this encounter
--- OUTSIDE RECORDS SUMMARY | 2024-10-22 14:27 | XMS_ITS | Encounter Summary ---
Author Organization Healthcare Address [address] [place] [address] Care Team Providers Care Panman Name Role Phone Melanie Tolliver APRN Primary Care Provider [phone] Reason for Visit * Reason Onset Date Comments HCN - Patient Message 10/21/2024 Encounter Details Date Type Department Care Team (Late st Contact Info) Description 10/21/2024 Telephone [facility] Interventional Pain Medicine [address] [place] [address] Osmani Carter MD [address] [facility] [address] [place] [address] HCN - Patient Message Social [...] encounter Miscellaneous Notes * Telephone Encounter - Mallory Diaz LPN - 10/21/2024 3:18 PM EDT Returned call, we talked about how she can have more pain at first before it gets better, she has been talking ibuprofen daily and it was suggested that she take aleve instead for a few days to have a different medication . We encouraged tylenol , ice and heat also to help. She states she will try these things, she does have a follow up scheduled * Telephone Encounter - Billy Og - 10/21/2024 2:50 PM EDT Status Update Call #1 1st call regarding the status of the initial request. Best contact number: [phone] (mobile) Optimal time of day to reach [...] receive notification of the communication/outcome via MyChart. * Telephone Encounter - Fifi Olsen - 10/21/2024 12:45 PM EDT Clinical Concern/Question Reason for Call: Dr Carter patient is requesting a call back. She said her pain level is a 10 and is hurting worse then she did before the procedure. Best contact number: [phone] (mobile) Optimal time of day to reach [...] Description 11/12/2024 9:40 AM EDT Office Visit [facility] Interventional Pain Medicine [address] [place] [address] Osmani Carter MD [address] [facility] [address] [place] [address] documented as of this encounter Visit Diagnoses Not on filedocumented in this encounter Additional Health Concerns Assessment Noted Time A fall risk assessment has been complete d for the patient 10/18/2024 11:13 AM EDT A Body Mass Index follow-up plan has been documented for the patient 10/18/2024 1:18 PM EDT documented as of this encounter Care Teams Panman Relationship Specialty Start Date End Date Melanie Tolliver APRN [address] [place] [address] PCP - General 07/05/24 documented as of this encounter
--- OUTSIDE RECORDS SUMMARY | 2024-10-22 14:27 | XMS_ITS | Clinical Summary ---
Author Organization Healthcare Address [address] [place] [id number] Care Team Providers Care Drilling Engineering Manager Name Role Phone Melanie Tolliver APRN Primary Care Provider [phone] Allergies No known active allergies Medications DULoxetine (Cymbalta) [address] capsule Take 1 capsule (60 mg total) by mouth 2 (two) times a day. Do not crush or chew. 60 capsule 12/26/19 Active traZODone (Desyrel) 100 MG tablet Take 2 tablets (200 mg total) by mouth every night. 60 tablet 12/26/19 Active Additional Information Patient not taking.Reported on 10/18/2024 hydrOXYzine pamoate (Vistaril) 25 MG capsule Take 1 capsule (25 mg total) by mouth every 6 (six) hours if needed for anxiety for up to 10 days. 30 capsule 12/26/19 Active Additional Information Patient not taking.Reported on 10/18/2024 Alcohol Swabs pads use 1 pad topically twice a day As Needed for injection 07/11/19 25 Active Ventolin HFA 108 (90 Base) MCG/ACT inhaler 07/23/19 25 Active Vitamin D3 1.25 MG (56748 UT) capsule take 1 capsule(1250 mcg) orally weekly for 6 weeks 04/29/19 25 Active Earwax Removal 6.5 % otic solution place 5 drops into the ear(s) twice a day for 4 days 04/08/19 25 Active cycloSPORINE (Restasis) 0.05 % ophthalmic emulsion 07/23/19 25 Active divalproex (Depakote) [address] tablet 07/23/19 25 Active fluticasone (Flonase) 50 MCG/ACT nasal spray 07/23/19 25 Active esomeprazole (NexIUM) [address] capsule Take 1 capsule by mouth daily. 07/11/19 25 Active ibuprofen 800 MG tablet 07/23/19 25 Active oxybutynin XL (Ditropan-XL) 10 MG 24 hr tablet 07/23/19 25 Active Invega Sustenna 234 MG/1.5ML suspension prefilled syringe Inject one (1) application into the muscle every 4 weeks 05/21/19 25 Active pregabalin (Lyrica) 150 MG capsule take 1 capsule(150 mg) orally daily 07/18/19 25 Active QUEtiapine (SEROquel) 200 MG tablet 07/23/19 25 Active ipratropium-al buterol (Duo-Neb) 0.5-2.5 mg/3 mL nebulizer solution inhale 3 mL four times a day As Needed for shortness of breath 09/11/19 25 Active famotidine (Pepcid) 40 MG tablet 09/15/19 25 025 Discontinued hydrOXYzine pamoate (Vistaril) 50 MG capsule 09/15/19 25 025 Discontinued Hospital, Clinic, or Other Facility Administered Medication Ordered Dose Route Frequency Start Date End Date Status lidocaine PF (Xylocaine) 1 % injection 300 mgIndications:Lumbar radiculopathy 300 mg IJ Once 10/18/2024 10/18/2024 Ended iohexol (OMNIPaque) 300 MG/ML injection 10 mLIndications:Lumbar radiculopathy 10 mL OTHER Once in imaging 10/18/2024 10/18/2024 Ended bupivacaine PF (Marcaine) 0.25 % injection 25 mgIndications:Lumbar radiculopathy 25 mg IJ Once 10/18/2024 10/18/2024 Ended dexamethasone (PF) (Decadron) injection 10 mgIndications:Lumbar radiculopathy 10 mg IJ Once 10/18/2024 10/18/2024 Ended Active Problems Problem Noted Date Diagnosed Date Lumbar radiculopathy 08/09/2024 Encounters Date Type Department Care Team Description 10/21/2024 Telephone [facility] Interventional Pain Medicine [address] [place] [address] Osmani Carter MD HCN - Patient Message 10/18/2024 11:30 AM EDT Procedure Visit [facility] Interventional Pain Medicine [address] [place] [address] Osmani Carter MD Lumbar radiculopathy 10/18/2024 Orders Only External Location [address] [place] [address] Provider, External 10/18/2024 Travel 09/17/2024 10:20 AM EDT Office Visit [facility] Interventional Pain Medicine [address] [place] [address] Osmani Carter MD Lumbar radiculopathy (Primary Dx) 09/17/2024 Travel 08/22/2024 Telephone [facility] Interventional Pain Medicine [facility] [place] [address] Osmani Carter MD HCN Clinical Concern/Question; HCN Paperwork/Documenta tion Request 08/09/2024 11:30 AM EDT Procedure Visit [facility] Interventional Pain Medicine [facility] [place] [address] Osmani Carter MD Lumbar radiculopathy (Primary Dx); Spondylosis of lumbar region without myelopathy or radiculopathy 08/09/2024 Orders Only External Location [address] [place] [address] Provider, External 08/09/2024 Travel 07/24/2024 Telephone [facility] Interventional Pain Medicine [facility] [place] [address] Osmani Carter MD HCN - Patient Message 07/23/2024 9:00 AM EDT Office Visit [facility] Interventional Pain Medicine [address] [place] [address] Osmani Carter MD Spondylosis of lumbar region without myelopathy or radiculopathy (Primary Dx); Spondylosis without myelopathy or radiculopathy, cervical region; Spondylosis of cervical region without myelopathy or radiculopathy 07/23/2024 Telephone [facility] Interventional Pain Medicine [address] [place] [address] Osmani Carter MD HCN - Patient Message [...] Mass Index 29.67 10/18/2024 11:14 AM EDT Plan of Treatment Upcoming Encounters Date Type Department Care Team (Late st Contact Info) Description 11/12/2024 9:40 AM EDT Office Visit [facility] Interventional Pain Medicine [address] [place] [address] Osmani Carter MD [address] [facility] [address] [place] [id number] Health Maintenance Due Date Last Done Comments [facility]-Depression Screening 1968 [facility]-HIV Screening 1968 [facility]-Medicare Annual Wellness (AWV) 1968 [facility]-Infant/Child/Adol SDOH Screenings 1968 [facility]- SDOH Screenings 01/28/1986 [facility]-Adult SDOH Screenings 01/28/1986 [facility]-DTaP,Tdap,and Td Vaccines (1 - Tdap) 01/28/1987 [facility]-Hepatitis B Vaccines (1 of 3 - 19+ 3-dose series) 01/28/1987 CT Colonography 01/28/2013 Colonoscopy 01/28/2013 FIT-DNA 01/28/2013 FIT 01/28/2013 FOBT 01/28/2013 Sigmoidoscopy 01/28/2013 [facility]-Colorectal Cancer Screening 01/28/2013 [facility]-Breast Cancer Screening 01/28/2018 [facility]-Zoster Vaccines (1 of 2) 01/28/2018 [id number] Vaccine (2 - season) 2023 06/18/2020 [facility]-Influenza Vaccine (#1) 11/11/202404/08, 01/14/2022, 02/10/2010 [facility]-Diabetes: Hemoglobin A1C Discontinued 11/29/2021 [facility]-Hepatitis C Screening Completed 11/29/2021, 11/2018 [facility]-Pneumococcal Vaccine: 50+ Years Completed 04/08/2024, 01/14/2022, 03/21/2016 [facility]-Obesity Intervention Completed 025, 09/17/2024, 08/09/2024, Additional history exists HPV Vaccines Aged Out No longer eligi [...] Routine 10/18/2024 11:30 AM EDT Lumbar radiculopathy POC ULTRASOUND 10/18/2024 WA NJX DX/THER SBST INTRLMNR LMBR/SAC W/IMG GDN [...] Recently Relevant to Health Maintenance Results * Interventional Pain Nurse Procedure Protocol (10/18/2024 11:30 AM EDT) Narrative Johanna Kothari RN - 10/18/2024 11:30 AM EDT Johanna Kothari RN 10/18/2024 1:18 PM Interventional Pain Nurse Procedure Protocol Documentation: Indications: Documentation supporting primary procedure completed by : Osmani Carter MD See the provider procedure note for performed procedure details and findings. Pre-Procedure Checklist: Currently taking anticoagulant(s)?: no Inspector Metal Can present?: yes (uber) Additional Pre-Procedure Comments: Left S1 TFESI A timeout was called immediately prior to the procedure, in accordance with [employer] policy @ 1142 Procedure details: Procedure start [...] to: home Mode of exit: Walked (to milk truck driver in hallway @11:55 AM) Attendance: Constant [...] ORDER YA Final Result * POC Imaging (10/18/2024) Only the most recent of2 resultswithin the time period is included. Anatomical Region Laterality Modality Pelvis Other 10/18/2024 us External Provider IMG POINT OF CARE ULTRASOUND F inal Result * WA NJX DX/THER SBST INTRLMNR LMBR/SAC W/IMG GDN (08/09/2024 11:30 AM EDT) Narrative Osmani Carter MD - 08/09/2024 11:30 AM EDT Osmani Carter MD 08/09/2024 11:34 AM Interlaminer Epidural - Lumbar / Sacral Performed by: Dalia Duron DO Authorized by: Osmani Carter MD us Osmani Carter MD IN CLINIC/BEDSIDE ORDER YA Final Result * Hepatitis panel, acute (11/29/2021 3:30 PM EDT) Hepatitis B Surf Antigen Negative Negative 11/29/2021 8:57 PM EDT [facility] Hepatitis C Antibody Negative Negative 11/29/2021 8:57 PM EDT [facility] Hepatitis A Antibody IgM Negative Negative 11/29/2021 8:57 PM EDT [facility] Hepatitis B Core Antibody IgM Negative Negative 11/29/2021 8:57 PM EDT [facility] Blood Venous blood specimen / Unknown Venipuncture / Unknown 11/29/2021 3:30 PM EDT 11/29/2021 3:37 PM EDT us Vanesa Burrell MD LAB BLOOD ORDERABLES Final Res ult [facility] [address] [place] [address] * (ABNORMAL) Hemoglobin A1c (11/29/2021 3:30 PM [...] Adults <6.0% Children and Adolescents <7.5% Source: [place] [employer]. Standards of medical care in diabetes,2017. Diabetes Care.2017:40 (suppl 1):S1-S135. HbA1c assay performed by an ion-exchange chromatography method that is certified traceable to the DCCT. us Vanesa Burrell MD LAB BLOOD ORDERABLES Final Res ult [facility] [address] [place] [address] from Last 3 Months or Most Recently Relevant to Health Maintenance Insurance [place] Care Teams Drilling Engineering Manager Relationship Specialty Start Date End Date Melanie Tolliver APRN [address] [place] [address] PCP - General 07/05/24
--- OUTSIDE RECORDS SUMMARY | 2024-10-22 14:27 | XMS_ITS | Encounter Summary ---
Author Organization Healthcare Address [address] [place] [address] Care Team Providers Care Ribbon Winder Name Role Phone Emmett Boyd DO Primary Care Provider [phone] Melanie Tolliver APRN Primary Care Provider [phone] Encounter Details Date Type Department Care Team (Late st Contact Info) Description 11/29/2021 Lab Requisition [facility] [address] [place] [address] Vanesa Burrell MD [address] [place] [address] Routine general medical examination at a [...] Description 11/12/2024 9:40 AM EDT Office Visit [facility] Interventional Pain Medicine [address] [place] [address] Osmani Carter MD [address] [facility] [address] [place] [address] documented as of this encounter Visit Diagnoses Diagnosis Routine general medical examination at a health care facility documented in this encounter Care Teams Ribbon Winder Relationship Specialty Start Date End Date Emmett Boyd DO [address] [place] [address] [address] [place] [address] PCP - General 07/24/20 07/04/24 Melanie Tolliver APRN [address] [place] [address] PCP - General 07/05/24 documented as of this encounter
--- NOTE | 2024-10-22 14:30 | MM_ITS ---
PROCEDURE INFORMATION: Exam: MG Bilateral Screening 3D Mammography Exam date and time: 10/22/2024 2:29 PM Age: 54 years old Clinical indication: Screening examination TECHNIQUE: Imaging protocol: Bilateral Screening tomosynthesis and 2D mammography including computer-aided detection (CAD) when performed. COMPARISON: 1. MG MM DIG SCREENING MAMM BI W/CAD 10/11/2023 8:04 AM 2. MG DMSB DIGITAL MAMM-SCREEN BILATERAL 12/29/2010 4:04 PM FINDINGS: MAMMOGRAPHY: Breast composition: There are scattered areas of fibroglandular density. Mass: None. Architectural distortion: None. Calcifications: No suspicious calcifications. Asymmetric density: None. Skin thickening: None. Axillary adenopathy: None. IMPRESSION: No mammographic evidence of malignancy. Annual screening is recommended unless otherwise clinically indicated. ASSESSMENT: BI-RADS Category 1: Negative.
== END 2024-10-22 23:59 | disposition home or self-care (01) ==
LOC: RAD 14:24
PROVIDERS: PCP Family Medicine; Visit Provider Family Medicine
DX: Z12.31 Encounter for screening mammogram for malignant neoplasm of breast (principal); R92.323 Mammographic fibroglandular density, bilateral breasts
CPT/HCPCS: 77063; 77067

== ENCOUNTER 2024-11-18 10:59 | Day surgery (SDC) | payer MEDICARE, MEDICAID, SELFPAY ==
--- NOTE | 2024-11-14 13:04 | EXP.HP ---
History of Present Illness *Admission Date: 11/18/24 *Reason for visit:: Dysphagia and screening for colon cancer *History of present illness: Mrs. Finn is a 54-year-old female who is here for diagnostic/therapeutic EGD and screening colonoscopy. The patient does have a history of GERD with dysphagia, globus sensation and some painful and noisy swallowing. She has never had a colonoscopy. The examination is deemed medically necessary for diagnostic EGD and screening colonoscopy. The patient has been seen, interviewed and examined prior to the procedure by both myself and the anesthesia provider. [facility] Disclaimer: The information contained in this section may have been updated after the patient was seen, as this information can be updated by other users. Medical History Cerumen impaction History of COVID-19 COPD (chronic obstructive pulmonary disease) Sinus headache History of gastroesophageal reflux (GERD) Viral illness Acute bacterial bronchitis Stress incontinence Hypoxia Pain around toenail, left foot Onychodystrophy Routine gynecological examination Urinary frequency Bloating Pelvic pain Hot flashes, menopausal Presence of mandibular implant Cervical myelopathy Dysconjugate gaze Neuropathy Incisional hernia Bipolar affect, depressed Schizophrenia PTSD (post-traumatic stress disorder) Surgical History History of hernia surgery Family History (Updated 11/15/24 @ 08:52 by Roxana Drummond RN) Other Breast cancer Family history of arthritis Heart disease Social History (Updated 11/18/24 @ 12:45 by David Saini CRNA) Smoking Status: Current every day smoker tobacco type: e-cigarettes how long ago did patient quit smoking: had stopped for 6 months alcohol intake: never substance use type: denies use current occupational status: disabled Travel in the last 8 weeks?: None Have you lived/traveled outside US in past 30 days?: No Contact w/someone who lives/traveled outside US past 30 days?: No Exposure to someone with infectious disease in past 14 days?: No Do you have a fever (greater than 100.4 F or 38 C)?: No Have you tested positive for COVID-19?: No Exposed to someone with COVID-19 in past 14 days?: No Do you have a sore throat?: No Do you have a cough?: No Do you have any weakness?: No Do you have any diarrhea?: No Are you experiencing any unusual bleeding?: No Do you have any muscle aches/pain?: No Do you have any abdominal pain?: No Are you experiencing loss of taste or smell?: No Other Medical History Have you received the Pneumonia Vaccine: No Review of Systems Review of Systems Review of systems (narrative): Negative *Cardiovascular Comments: Negative *Gastrointestinal Comments: Negative *Genitourinary Comments: Negative *Musculoskeletal Comments: Negative *Neurologic Comments: Negative Meds Home Medications and Allergies Home Medications ?Medication ?Instructions ?Recorded ?Confirmed ?Type duloxetine 60 mg capsule,delayed See Rx Instructions .Route 10/02/23 11/15/24 Rx release .COMPLEX #180 caps diclofenac sodium 1 % topical gel 4 g topical QID PRN pain #100 04/11/24 11/15/24 Rx grams cholecalciferol (vitamin D3) 1,250 1,250 mcg PO WEEKLY 6 weeks #6 caps 05/20/24 11/15/24 Rx mcg (50,000 unit) capsule albuterol sulfate 90 mcg/actuation See Rx Instructions .Route 07/23/24 11/18/24 Rx aerosol inhaler (Ventolin HFA) .COMPLEX #18 grams paliperidone palmitate 234 mg/1.5 234 mg IM MONTHLY bipolar 08/06/24 11/15/24 History mL intramuscular syringe (Invega Sustenna) ipratropium 0.5 mg-albuterol 3 mg See Rx Instructions .Route 08/22/24 11/15/24 Rx (2.5 mg base)/3 mL nebulization .COMPLEX #90 mL soln ibuprofen 800 mg tablet See Rx Instructions .Route 09/10/24 11/15/24 Rx .COMPLEX #60 tabs oxybutynin chloride 10 mg See Rx Instructions .Route 09/10/24 11/15/24 Rx tablet,extended release 24 hr .COMPLEX #30 tabs cyclosporine 0.05 % eye drops in a See Rx Instructions .Route 10/09/24 11/15/24 Rx dropperette .COMPLEX #60 ea fluticasone propionate 50 See Rx Instructions .Route 10/09/24 11/15/24 Rx mcg/actuation nasal .COMPLEX #16 grams spray,suspension pregabalin 150 mg capsule (Lyrica) 150 mg PO BID #60 caps 10/09/24 11/15/24 Rx divalproex 500 mg tablet,delayed 500 mg PO BID 11/15/24 11/15/24 History release (Depakote) esomeprazole magnesium 40 mg See Rx Instructions .Route .COMPLEX 11/15/24 11/15/24 History capsule,delayed release (Nexium) quetiapine 200 mg tablet (Seroquel) 200 mg PO HS 11/15/24 11/15/24 History New Prescriptions to Start Prescriptions: Allergies Allergy/AdvReac Type Severity Reaction Status Date / Time No Known Allergies Allergy Verified 10/31/24 14:34 Exam *Routine HEENT Exam Head: Present normocephalic Eye: Present EOMI and PERRL ENT: Present mucous membranes moist *Routine Neck Exam Neck: Present supple *Routine Respiratory Exam Respiratory: Present CTA bilaterally *Routine Cardiovascular Exam Cardiovascular: Present RRR *Routine Abdominal Exam Abdominal: Present soft and normoactive bowel sounds; Absent tenderness *Routine Rectal Exam Rectal:: deferred *Routine Genitalia Exam Genitalia:: deferred *Routine Extremities Exam Extremities: Absent cyanosis, clubbing or edema *Routine Skin Exam Skin: Present warm; Absent rash *Routine Neurological Exam Neurological: Present alert and oriented X3 Assessment and Plan *Assessment and plan (1) Dysphagia: Status: Acute Category: Medical Code(s): R13.10 - Dysphagia, unspecified (2) Globus sensation: Status: Acute Category: Medical Code(s): R09.A2 - Foreign body sensation, throat (3) Hoarseness: Status: Acute Category: Medical Code(s): R49.0 - Dysphonia (4) Screening for colon cancer: Status: Acute Category: Medical Code(s): Z12.11 - Encounter for screening for malignant neoplasm of colon Plan A/P: 1. Dysphagia/globus sensation and GERD for upper endoscopy and screening for colon cancer for colonoscopy is the preprocedural diagnosis. The patient will be anesthetized/sedated using MAC sedation. The patient has been seen and examined. Cardiac and lung assessment prior to the examination is stable. Proceed with planned diagnostic EGD and screening colonoscopy.
[2024-11-18 11:56] VITALS: BP 141/85; PULSE 78; RESP 20; TEMP 36.6; O2SAT 91
[2024-11-18 12:01] VITALS: BMI 30.2
[2024-11-18] MEDS: LACTATED RINGERS 1000ML 1,000 ML 50 ML IV (12:03)
--- NOTE | 2024-11-18 12:45 | EXP.ANES.CKL ---
[facility] Disclaimer: The information contained in this section may have been updated after the patient was seen, as this information can be updated by other users. Medical History Cerumen impaction History of COVID-19 COPD (chronic obstructive pulmonary disease) Sinus headache History of gastroesophageal reflux (GERD) Viral illness Acute bacterial bronchitis Stress incontinence Hypoxia Pain around toenail, left foot Onychodystrophy Routine gynecological examination Urinary frequency Bloating Pelvic pain Hot flashes, menopausal Presence of mandibular implant Cervical myelopathy Dysconjugate gaze Neuropathy Incisional hernia Bipolar affect, depressed Schizophrenia PTSD (post-traumatic stress disorder) Surgical History History of hernia surgery Family History (Updated 11/15/24 @ 08:52 by Roxana Drummond RN) Other Breast cancer Family history of arthritis Heart disease Social History Smoking Status: Current every day smoker tobacco type: e-cigarettes how long ago did patient quit smoking: had stopped for 6 months alcohol intake: never substance use type: denies use current occupational status: disabled Travel in the last 8 weeks?: None [facility] Anesthesia Checklist Patient Identification Patient Identification: Arm Band and Verbal (Name & ) Structural Data Admitted From: Home Planned Operative Procedure/s: EGD/colonoscopy Verified Documents: Surgical Consent NPO Status Verified Time NPO: 00:00 Additional verifications Anesthesia Reactions: No Airway Assessment Mallampati Score:: Class II C-Spine Mobility Assessed: Yes TMJ Mobility Assessed: Yes Dentition: Dentures-good fit Neurological Assessment Level of Consciousness: Awake, Alert and Appropriate Hx Seizures: No Numbness or tingling in extremities: No Anesthesia Plan Anesthesia Risk discussed: Yes Anesthesia Plan: Verified ASA Class: II Anesthesia Type: MAC
--- NOTE | 2024-11-18 12:56 | HMH.PROCNOTE ---
[facility] Procedure Note Date: 11/18/24 Time: 13:19 Procedure Note:: Upper Endoscopy Procedure Report: Esophagogastroduodenoscopy with cold biopsies and TTS balloon dilation Endoscopost: New Valencia II, MD Referring Physician: CASI Diaz Date of Procedure: November 18, 2024 Equipment: Olympus GIF-1100 standard upper endoscope Sedation: MAC sedation Indications: Mrs. Finn is a 54-year-old female who is here for diagnostic/therapeutic EGD and screening colonoscopy. The patient does have a history of GERD with dysphagia, globus sensation and some painful and noisy swallowing. The patient does report heartburn, reflux, belching and some bloating. She reports intermittent epigastric discomfort/dyspepsia. She has intermittent nausea. This is her first EGD. Procedure: Prior to the procedure, a history and physical exam was performed, and patient's medications and allergies were reviewed. The risks, benefits and alternatives of the sedation and procedure were discussed with the patient. All questions were answered and informed consent was obtained. The patient was brought to the procedure room. Patient identification and proposed procedure were verified by the physician and the nurse. The patient was placed in a left lateral decubitus position and the scope was passed under direct vision. Throughout the procedure, the patient's blood pressure, pulse, and oxygen saturations were monitored continuously. The upper GI endoscopy was accomplished without difficulty. The patient tolerated the procedure well. Findings: The scope was passed directly into the upper esophagus and advanced to the third portion of the duodenum. A cold biopsy was taken from the second portion of the duodenum for the disaccharidase assay. The post bulbar duodenum, ampulla and duodenal bulb were normal with normal mucosa and conniventes. The scope was withdrawn through a normal duodenal bulb and pylorus into the stomach. There was mild linear antral gastropathy. The body and fundus of the stomach were normal. Cold biopsies were taken from the antrum and lesser curvature. Upon retroflexion there was a very small sliding 1 to 2 cm hiatal hernia. The scope was then withdrawn into the esophagus. There was no evidence of reflux esophagitis or Viveros's. There were no strictures, rings, corrugation, furrowing, webs or inlet patch. There were strong tertiary contractions and evidence of moderate esophageal dysmotility. The entire esophagus was dilated to 60 [place]/20 mm with a TTS hydrostatic balloon. There was some resistance at the cricopharyngeus. The remainder of the esophageal mucosa was normal. Impression: 1. Cricopharyngeal spasm status post dilation to 20 mm 2. Nonerosive GERD with moderate esophageal dysmotility and very small sliding 1 to 2 cm hiatal hernia 3. Mild linear gastropathy of antrum Plan: I will follow-up the biopsies and disaccharidase assay. I will discuss the findings and treatment options with patient and family. Most of your symptoms of reflux and dyspepsia are related to and driven by lower intestinal gas pressure gradients/high gas pressure buildup resulting in backflow of bile and peptic fluid from the duodenum into the stomach (duodenal reflux). This gas production (carbon dioxide, hydrogen, methane, etc.) from the lower intestinal tract is the byproduct of colonic bacterial fermentation. This colonic fermentation occurs when there is more carbohydrate (dietary starches, sugars and high residue plant fiber) substrate that does not get digested (in the middle or small intestine) or occurs when there is colonic fecal buildup and colonic bacterial overgrowth. This indeed leads to bloating and the gas pressure buildup with gas pressure gradients that do drive backflow and dyspepsia. I will proceed with screening colonoscopy.
--- NOTE | 2024-11-18 12:57 | HMH.PROCNOTE ---
[facility] Procedure Note Date: 11/18/24 Time: 13:24 Procedure Note:: Sigmoidoscopy procedure report: Aborted colonoscopy Endoscopist: New Valencia II, MD Referring physician: CASI Diaz Date of Procedure: November 18, 2024 Equipment: Olympus [id number] adult colonoscope Sedation: MAC sedation Indication: Mrs. Finn is a 54-year-old female who is here for initial screening colonoscopy. The patient does have a history of constipation predominant IBS. She does get some gassiness and bloating. She reports no rectal bleeding, weight loss, change in her bowel habits or family history of colon cancer. Procedure: Prior to the procedure, a history and physical exam was performed, and patient's medications and allergies were reviewed. The risks, benefits and alternatives of the sedation and procedure were discussed with the patient. All questions were answered and informed consent was obtained. The patient was brought to the procedure room. Patient identification and proposed procedure were verified by the physician and the nurse. The patient was placed in a left lateral decubitus position and the scope was passed under direct vision. Throughout the procedure, the patient's blood pressure, pulse, and oxygen saturations were monitored continuously. The colonoscopy was accomplished without difficulty. The patient tolerated the procedure well. Findings: On digital rectal examination, there was normal rectal tone. There were no external hemorrhoids. The scope was then inserted through the anal canal into the rectum and advanced to 30 cm. There was a single 5 mm sigmoid polyp that was difficult to visualize and removed because there was very poor bowel preparation with brown liquid stool throughout and inadequate visualization and preparation. The procedure was aborted. Impression: 1. Inadequate bowel preparation?aborted colonoscopy Plan: I will recommend repeat screening colonoscopy with 2-day bowel preparation plus Linzess.
[2024-11-18 13:30] VITALS: BP 130/75; PULSE 77; RESP 18; TEMP 36.1; O2SAT 95
[2024-11-18 13:40] VITALS: BP 131/86; PULSE 84; RESP 18; O2SAT 90
[2024-11-18 13:50] VITALS: BP 113/76; PULSE 83; RESP 18; O2SAT 90
[2024-11-18 14:00] VITALS: BP 142/88; PULSE 78; RESP 18; O2SAT 93
[2024-11-18 14:30] VITALS: BP 142/89; PULSE 73; RESP 18; TEMP 36.1; O2SAT 94
[2024-11-22 09:21] LABS: Interpretation Notes (.); Lactase 2.11 (>/= 14.0); Maltase 140.73 (>/= 110.0); Palatinase 9.06 (>/= 8.5); Reference Notes (.); Sucrase 35.81 (>/= 25.0)
== END 2024-11-18 14:30 | disposition home or self-care (01) ==
PROVIDERS: PCP Family Medicine; Visit Provider Internal Medicine Gastroenterology
PROC: 0DJ08ZZ Inspection of Upper Intestinal Tract, Via Natural or Artificial Opening Endoscopic (ICD-10-PCS; CPT 45378; principal; 2024-11-18 13:00)
DX: Z12.11 Encounter for screening for malignant neoplasm of colon (principal); R13.10 Dysphagia, unspecified; Z53.09 Procedure and treatment not carried out because of other contraindication; K30 Functional dyspepsia; K58.1 Irritable bowel syndrome with constipation; K44.9 Diaphragmatic hernia without obstruction or gangrene; K31.89 Other diseases of stomach and duodenum; R49.0 Dysphonia; J44.9 Chronic obstructive pulmonary disease, unspecified; K21.9 Gastro-esophageal reflux disease without esophagitis; R09.A2 Foreign body sensation, throat; G95.89 Other specified diseases of spinal cord; F31.89 Other bipolar disorder; F43.10 Post-traumatic stress disorder, unspecified; F20.9 Schizophrenia, unspecified; G62.9 Polyneuropathy, unspecified; F17.290 Nicotine dependence, other tobacco product, uncomplicated; Z86.16 Personal history of COVID-19; Z80.3 Family history of malignant neoplasm of breast; Z79.899 Other long term (current) drug therapy; Z79.51 Long term (current) use of inhaled steroids
CPT/HCPCS: 43239; 43249; G0104; 82657; C1726; J2003; J2704; J7120

== ENCOUNTER 2025-02-04 10:05 | Outpatient (CLI) | payer MEDICARE, MEDICAID, SELFPAY ==
[2025-02-04 10:35] VITALS: PULSE 84
[2025-02-04] MEDS: ALBUTEROL 0.083% 2.5 MG/3 ML NEB IH (10:35)
[2025-02-04 10:45] VITALS: PULSE 89
== END 2025-02-04 23:59 | disposition home or self-care (01) ==
LOC: RT 10:05
PROVIDERS: PCP Student in an Organized Health Care Education/Training Program; Visit Provider Family Medicine
DX: J44.9 Chronic obstructive pulmonary disease, unspecified (principal); R94.2 Abnormal results of pulmonary function studies
CPT/HCPCS: 94010; 94618; 94640; 94727; 94729